=== PATIENT | female | born 1990 | race Caucasian/White ===

== ENCOUNTER 2016-11-08 16:35 | Emergency (ER) | payer MEDICAID ==
[2016-11-08] MEDS ORDERED: LIDOCAINE-MPF 1% 5 ML VIAL ONE (16:58)
[2016-11-08] MEDS ORDERED: LIDOCAINE 1% 50 ML MDV SUBQ STA (16:59)
== END 2016-11-08 17:25 | disposition home or self-care (01) ==
DX: S61.411A Laceration without foreign body of right hand, initial encounter (principal); W25.XXXA Contact with sharp glass, initial encounter; Y93.G1 Activity, food preparation and clean up; Y92.009 Unspecified place in unspecified non-institutional (private) residence as the place of occurrence of the external cause; Y99.8 Other external cause status; M06.9 Rheumatoid arthritis, unspecified

== ENCOUNTER 2017-01-14 19:47 | Inpatient (IN) | payer MEDICAID ==
[2017-01-14] MEDS ORDERED: SODIUM CHLORIDE 0.9% 1,000 ML IV ONE ×2 (20:00→20:34)
[2017-01-14] MEDS ORDERED: HYDROmorphone 1 MG/ML SYRINGE IVP STA (20:34)
[2017-01-14] MEDS ORDERED: ONDANSETRON 4 MG/2 ML VIAL IVP STA ×2 (20:34→21:50)
[2017-01-14] MEDS ORDERED: ONDANSETRON 4 MG/2 ML VIAL ONE ×2 (20:35→21:52)
[2017-01-14] MEDS ORDERED: HYDROmorphone 1 MG/ML SYRINGE ONE (20:35)
[2017-01-14] MEDS ORDERED: IOPAMIDOL-300 100 ML VIAL IVP ONE (21:35)
[2017-01-14] MEDS ORDERED: KETOROLAC 60 MG/2 ML VIAL IVP STA (21:50)
[2017-01-14] MEDS ORDERED: KETOROLAC 30 MG/ML VIAL ONE (21:52)
[2017-01-14] MEDS ORDERED: cefTRIAXone 1 GM in SODIUM CHLORIDE 0.9% MINIBAG 100 ML IV STA (22:43)
[2017-01-14] MEDS ORDERED: FLUCONAZOLE 100 MG TABLET PO STA (22:43)
[2017-01-14] MEDS ORDERED: FLUCONAZOLE 100 MG TABLET ONE (22:49)
[2017-01-14] MEDS ORDERED: cefTRIAXone 1 GM VIAL ONE (22:49)
[2017-01-15] MEDS ORDERED: ONDANSETRON 4 MG/2 ML VIAL IVP STA (00:04)
[2017-01-15] MEDS ORDERED: SODIUM CHLORIDE 0.9% 1,000 ML IV ONE (00:04)
[2017-01-15] MEDS ORDERED: ONDANSETRON 4 MG/2 ML VIAL ONE (00:07)
[2017-01-15] MEDS ORDERED: IBUPROFEN 600 MG TABLET PO PRN (00:21)
[2017-01-15] MEDS ORDERED: MORPHINE 2 MG/ML SYRINGE IVP PRN (00:21)
[2017-01-15] MEDS ORDERED: PROMETHAZINE 25 MG/1 ML VIAL IM PRN (00:21)
[2017-01-15] MEDS ORDERED: PROCHLORPERAZINE 10 MG/2 ML VIAL IVP PRN (00:21)
[2017-01-15] MEDS ORDERED: SODIUM CHLORIDE FLUSH 0.9% 10 ML SYRINGE IVP PRN (00:21)
[2017-01-15] MEDS ORDERED: ONDANSETRON 4 MG/2 ML VIAL IVP PRN (00:21)
[2017-01-15] MEDS ORDERED: KETOROLAC 30 MG/ML VIAL IM PRN (00:27)
[2017-01-15] MEDS ORDERED: ALBUTEROL NEB 2.5 MG/3 ML INH PRN (00:28)
[2017-01-15] MEDS: ACETAMINOPHEN 325 MG TABLET PO PRN ×2 (02:16→07:55)
[2017-01-15] MEDS: SODIUM CHLORIDE 0.9% 1,000 ML IV SCH ×2 (02:30→05:06)
[2017-01-15] MEDS ORDERED: SODIUM CHLORIDE FLUSH 0.9% 10 ML SYRINGE IVP SCH (06:00)
[2017-01-15] MEDS: POTASSIUM CHLOR 10 MEQ/100 ML 100 ML IV SCH ×4 (07:25→09:28)
[2017-01-15] MEDS ORDERED: SACCHAROMYCES BOULARDII 250 MG CAPSULE PO SCH (08:00)
[2017-01-15] MEDS ORDERED: ENOXAPARIN 40 MG/0.4 ML SYRINGE SUBQ SCH (09:00)
[2017-01-15] MEDS ORDERED: POLYETHYLENE GLYCOL 3350 17 GM PACKET PO SCH (09:00)
[2017-01-15] MEDS ORDERED: CALCIUM CITRATE 250 MG TABLET PO SCH (09:00)
[2017-01-15] MEDS ORDERED: POTASSIUM CHLORIDE 20 MEQ TABLET PO ONE (10:00)
[2017-01-15] MEDS ORDERED: cefTRIAXone 2 GM in SODIUM CHLORIDE 0.9% MINIBAG 100 ML IV SCH (22:00)
== END 2017-01-15 09:40 | disposition home or self-care (01) | DRG 872 ==
DX: A41.9 Sepsis, unspecified organism (principal); N12 Tubulo-interstitial nephritis, not specified as acute or chronic; B37.3 Candidiasis of vulva and vagina; R31.9 Hematuria, unspecified; N83.292 Other ovarian cyst, left side; J45.909 Unspecified asthma, uncomplicated; E87.6 Hypokalemia; E83.51 Hypocalcemia; Z79.51 Long term (current) use of inhaled steroids

== ENCOUNTER 2017-03-07 09:47 | Outpatient (CLI) | payer MEDICAID | END 2017-03-07 09:48 | DX: R10.84 Generalized abdominal pain (principal) ==

== ENCOUNTER 2017-05-03 19:33 | Emergency (ER) | payer MEDICAID ==
--- NOTE | 2017-05-03 20:09 | ED Physician Documentation ---
PD HPI LOWER EXT INJURY - Stated complaint Stated Complaint: RT TOE PX - Chief complaint Chief Complaint: Ext Problem - History obtained from History obtained from: Patient - History of Present Illness PD HPI LOW EXT INJURY LOCATION: Right, Toe (great) Type of injury: Blunt / blow Where injury occurred: A house / apartment Timing - onset: Enter time (1899), Today Timing - duration: Minutes Timing - details: Abrupt onset, Still present Improved by: Rest, Immobilization Worsened by: Moving, Palpating Associated symptoms: Swelling. No: Weakness, Numbness, Tingling Contributing factors: No: Anticoagulated Similar symptoms before: Has not had sx before Recently seen: Not recently seen - Additional information Additional information: 26-year-old female with a history of asthma and juvenile onset rheumatoid arthritis was in her kitchen this evening when she dropped a can appease directly on her great toe she has a significant amount of pain and a subungual hematoma. She has come directly to the emergency department. Review of Systems Constitutional: denies: Fever Nose: denies: Congestion Throat: denies: Sore throat Respiratory: denies: Dyspnea, Cough GI: denies: Vomiting Musculoskeletal: reports: Extremity pain, Joint pain, Joint swelling, Pain with weight bearing Neurologic: denies: Generalized weakness, Focal weakness, Numbness PD PAST MEDICAL HISTORY - Past Medical History Past Medical History: Yes Cardiovascular: None Respiratory: Asthma Neuro: None Endocrine/Autoimmune: None GI: None HEENT: None Psych: None Musculoskeletal: None Derm: None Other Past Medical History: juvenile rheumatoid arthritis - Past Surgical History 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 HEENT: Tonsil/Adenoidectomy - Present Medications Home Medications: Ambulatory Orders Medication Instructions Recorded Confirmed No Known Home Medications [No 05/03/17 05/03/17 Known Home Medications] - Allergies Allergies/Adverse Reactions: Allergies Allergy/AdvReac Type Severity Reaction Status Date / Time amoxicillin [Amoxicillin] Allergy Mild Rash Verified 05/03/17 19:46 - Social History Does the pt smoke?: No Smoking Status: Never smoker Does the pt drink ETOH?: No Does the pt have substance abuse?: Yes - Immunizations Immunizations are current?: Yes Immunizations: TDAP current <10years - POLST Patient has POLST: No PD ED PE NORMAL - Vitals Vital signs reviewed: Yes (Normal) - General General: Alert and 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, No acute distress, Well developed/nourished - HEENT HEENT: Atraumatic, PERRL - Respiratory Respiratory: No respiratory distress - Derm Derm: Normal color, Warm and dry, No rash - Extremities Extremities: Other (The right great toe has a central subungual hematoma and abrasion to the medial aspect and is quite tender mildly swollen.) - Neuro Neuro: Alert and 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, No motor deficit, No sensory deficit, Normal speech - Psych Psych: Normal mood, Normal affect Results - Vitals Vitals: Vital Signs - 24 hr 05/03/17 19:35 Temperature 36.3 C L Heart Rate 91 Respiratory 16 Rate Blood Pressure 123/79 O2 Saturation 100 Oxygen O2 Source Room air PD MEDICAL DECISION MAKING - ED course Complexity details: reviewed old records, reviewed results, re-evaluated patient , considered differential, d/w patient ED course: 26-year-old female with a subungual hematoma of the right great toe does not have evidence of fracture on x-ray examination she is counseled on the likelihood of complete avulsion of the toenail. Departure - Departure Disposition: 01 Home, Self Care Clinical Impression: Contusion of great toe with damage to nail Qualifiers: Encounter type: initial encounter Laterality: right Qualified Code(s): S90.211A - Contusion of right great toe with damage to nail, initial encounter Subungual hematoma of great toe of right foot Qualifiers: Encounter type: initial encounter Qualified Code(s): S90.211A - Contusion of right great toe with damage to nail, initial encounter Condition: Stable Instructions: ED Hematoma Subungual, ED Contusion Lower Ext Follow-Up: Barrie Salinas MD [Primary Care Provider] -
[2017-05-03] MEDS ORDERED: HYDROcod/ACET 5/325 Prepack 6 PO ONE ×2 (20:46→20:47)
--- NOTE | 2017-05-03 20:55 | XRAY Preliminary Report ---
Exam: XR Foot 3 View RT IMPRESSION: No bony abnormality. [facility] SITE ID: [id number]
[2017-05-03 21:00] VITALS: BP 131/95
--- NOTE | 2017-05-03 21:04 | XRAY Report ---
EXAM: RIGHT FOOT RADIOGRAPHY EXAM DATE: 05/03/2017 08:21 PM. CLINICAL HISTORY: Great toe contusion . COMPARISON: None. TECHNIQUE: 3 views. FINDINGS: Bones: Normal. No fractures or bone lesions. Joints: Normal. No subluxations. Soft Tissues: Moderate edema right great toe. No radiopaque foreign bodies. IMPRESSION: No bony abnormality. [facility] Referring Provider Line: [phone] SITE ID: [id number]
== END 2017-05-03 20:59 | disposition home or self-care (01) ==
LOC: ED 19:33
DX: S90.211A Contusion of right great toe with damage to nail, initial encounter (principal); W20.8XXA Other cause of strike by thrown, projected or falling object, initial encounter; Y92.030 Kitchen in apartment as the place of occurrence of the external cause; J45.909 Unspecified asthma, uncomplicated; M08.00 Unspecified juvenile rheumatoid arthritis of unspecified site
CPT/HCPCS: 99283

== ENCOUNTER 2017-06-21 18:00 | Emergency (ER) | payer MEDICAID ==
--- NOTE | 2017-06-21 19:14 | XRAY Preliminary Report ---
Exam: XR Finger(s) LT IMPRESSION: Normal second digit radiography. [facility] SITE ID: [id number]
--- NOTE | 2017-06-21 19:17 | XRAY Report ---
EXAM: LEFT SECOND DIGIT RADIOGRAPHY EXAM DATE: 06/21/2017 06:34 PM. CLINICAL HISTORY: Gross injury. Pain. COMPARISON: None. TECHNIQUE: 3 views. FINDINGS: Bones: Normal. No fracture or bone lesion. Joints: Normal. No subluxations. Soft Tissues: Normal. No soft tissue swelling. IMPRESSION: Normal second digit radiography. [facility] Referring Provider Line: [phone] SITE ID: [id number]
--- NOTE | 2017-06-21 19:21 | ED Physician Documentation ---
PD HPI UPPER EXT INJURY - Stated complaint Stated Complaint: LT FINGER LAC - Chief complaint Chief Complaint: Ext Problem - History obtained from History obtained from: Patient - History of Present Illness Location: Left, Finger (2) Type of injury: Blunt / blow Improved by: Rest Worsened by: Moving, Palpating Associated symptoms: No: Weakness, Numbness, Tingling Contributing factors: No: Anticoagulated, Prior ortho surgery Similar symptoms before: Has not had sx before Recently seen: Not recently seen - Additonal information Additional information: Patient is a 26-year-old female who states that she struck the dorsum of the left index finger with a mallet accidentally, this is over the PIP joint. States the initial pain was 8 out of 10, now 4 out of 10. Limited range of motion secondary to pain. Has an abrasion over the dorsum of the fingers well. Denies any numbness, tingling. 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 HEENT: Tonsil/Adenoidectomy - Present Medications Home Medications: Ambulatory Orders Medication Instructions Recorded Confirmed No Known Home Medications [No 05/03/17 05/03/17 Known Home Medications] - Allergies Allergies/Adverse Reactions: Allergies Allergy/AdvReac Type Severity Reaction Status Date / Time amoxicillin [Amoxicillin] Allergy Mild Rash Verified 06/21/17 18:19 - Social History Does the pt smoke?: No Smoking Status: Never smoker Does the pt drink ETOH?: No Does the pt have substance abuse?: No - Immunizations Immunizations are current?: Yes Immunizations: TDAP current <10years - POLST Patient has POLST: No PD ED PE NORMAL - Vitals Vital signs reviewed: Yes - General General: Alert and 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, No acute distress - Derm Derm: Warm and dry - Extremities Extremities: Other (Tender to palpation over the PIP joint of the left index finger. Limited range of motion secondary to pain. Tendons intact. Small abrasion over the joint. There is no violation of the joint capsule itself. Neurovascularly intact) Results - Vitals Vitals: Vital Signs - 24 hr 06/21/17 06/21/17 18:15 19:49 Temperature 36.9 C 36.7 C Heart Rate 84 75 Respiratory 18 18 Rate Blood Pressure 137/89 H 114/83 H O2 Saturation 96 100 Oxygen O2 Source Room air - Rads (name of study) Left index finger x-ray Radiology: Prelim report reviewed, EMP read contemporaneously, See rad report ( No acute bony abnormality) PD MEDICAL DECISION MAKING - ED course Complexity details: reviewed results, re-evaluated patient, considered differential, d/w patient ED course: Patient is a 26-year-old female who presents to the emergency department after sustaining a contusion to the left index finger from a mallet. No acute fractures on x-ray. Wound was cleansed and bandaged. Placed in a splint for comfort. Will utilize Tylenol and Motrin as needed for pain at home. Tetanus is up-to-date. Patient is right-handed. Counseled regarding missed fractures secondary to acute swelling and may need repeat xrays if not improving. Patient counseled regarding signs and symptoms for which I believe and urgent re -evaluation would be necessary. Patient with good understanding of and agreement to plan and is comfortable going home at this time This document was made in part using voice recognition software. While efforts are made to proofread this document, sound alike and grammatical errors may occur. Departure - Departure Disposition: 01 Home, Self Care Clinical Impression: Abrasion Finger contusion Qualifiers: Encounter type: initial encounter Finger: index finger Damage to nail status: without damage Laterality: left Qualified Code(s): S60.022A - Contusion of left index finger without damage to nail, initial encounter Condition: Good Instructions: ED Contusion Finger Follow-Up: Barrie Salinas MD [Primary Care Provider] - As Needed Comments: wear the finger splint for the next 4-5 days. Return if you worsen. Your xrays are normal today. Discharge Date/Time: 06/21/17 19:50
[2017-06-21] MEDS: IBUPROFEN 800 MG TABLET PO STA (19:39)
[2017-06-21] MEDS ORDERED: IBUPROFEN 800 MG TABLET PO ONE (19:41)
[2017-06-21 19:50] VITALS: BP 114/83
== END 2017-06-21 19:50 | disposition home or self-care (01) ==
LOC: ED 18:00
DX: S60.411A Abrasion of left index finger, initial encounter (principal); S61.211A Laceration without foreign body of left index finger without damage to nail, initial encounter; W22.8XXA Striking against or struck by other objects, initial encounter; Y93.89 Activity, other specified
CPT/HCPCS: 73140; 99282; 99283

== ENCOUNTER 2017-07-10 15:39 | Emergency (ER) | payer MEDICAID ==
[2017-07-10 15:50] VITALS: BP 136/89
[2017-07-10] MEDS ORDERED: DEXAMETHASONE 10 MG/ML VIAL PO STA (16:12)
--- NOTE | 2017-07-10 16:14 | ED Physician Documentation ---
PD HPI UPPER EXT INJURY - Stated complaint Stated Complaint: L INDEX FINGER INJURY - Chief complaint Chief Complaint: Ext Problem - History obtained from History obtained from: Patient - History of Present Illness Location: Left, Finger (index) Type of injury: Blunt / blow Where injury occurred: Home Timing - onset: How many days ago (19) Timing - duration: Days (19) Improved by: Rest, Immobilization Worsened by: Moving, Palpating Associated symptoms: Swelling. No: Weakness, Numbness Contributing factors: No: Anticoagulated Similar symptoms before: Has not had sx before Recently seen: Emergency Dept (Seen in the ED 19 days ago with laceration) - Additonal information Additional information: 26-year-old female struck her left index finger with a mallet 19 days ago. She had a laceration over the PIP joint and x-ray was obtained and the patient was patient's finger was sutured. She has since complained of persistent pain and difficulty moving the finger through a full range of motion. She has an autistic son who has struck her finger several times and this hurts all the way up into her neck. She has been into see her primary for this and they have given her injections trigger point into the neck for the pain associated with the finger contusion and laceration. The patient has restricted range of motion of the index finger is not able to fully bend it she is able to fully extend it. Review of Systems Constitutional: denies: Fever Ears: denies: Ear pain Nose: denies: Congestion Respiratory: denies: Cough GI: denies: Vomiting Skin: reports: Laceration (s). denies: Rash Musculoskeletal: reports: Extremity pain, Joint pain. 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 HEENT: Tonsil/Adenoidectomy - Present Medications Home Medications: Ambulatory Orders Medication Instructions Recorded Confirmed No Known Home Medications [No 05/03/17 05/03/17 Known Home Medications] - Allergies Allergies/Adverse Reactions: Allergies Allergy/AdvReac Type Severity Reaction Status Date / Time amoxicillin [Amoxicillin] Allergy Mild Rash Verified 06/21/17 18:19 - Social History Does the pt smoke?: No Smoking Status: Never smoker Does the pt drink ETOH?: No Does the pt have substance abuse?: No - Immunizations Immunizations are current?: Yes Immunizations: TDAP current <10years - POLST Patient has POLST: No PD ED PE NORMAL - Vitals Vital signs reviewed: Yes (Hypertensive) - General General: No acute distress, Well developed/nourished - HEENT HEENT: Atraumatic, PERRL - Neck Neck: Supple, no meningeal sign - Respiratory Respiratory: No respiratory distress - Derm Derm: Normal color, Warm and dry, No rash - Extremities Extremities: No deformity, No edema, Other (There is some mild tenderness over the left index finger PIP joint all over the ulnar surface. The eschar is now resolved and there is scar tissue that appears appropriate for the age of the injury. She is able to flex and extend the digit at the PIP and DIP but she is not able to get full range of motion. Distal neurovascular components are intact.) Results - Vitals Vitals: Vital Signs - 24 hr 07/10/17 15:46 Temperature 36.9 C Heart Rate 93 Respiratory 17 Rate Blood Pressure 136/89 H O2 Saturation 99 Oxygen O2 Source Room air PD MEDICAL DECISION MAKING - ED course Complexity details: reviewed results, re-evaluated patient, considered differential, d/w patient, d/w family ED course: 26-year-old female with a recent contusion laceration injury to the left index finger over the extensor tendon. She has some mild restriction of movement but is able to move the finger through the range of motion she is concerned because her physician told her she might have to see a hand surgeon.Here in the emergency department her fingers placed into a splint and she is given a dose of dexamethasone. I have encouraged her to follow-up with orthopedics next week to begin physical therapy for rehabilitation of the tendon and tendon sheath. Departure - Departure Disposition: 01 Home, Self Care Clinical Impression: Finger contusion Qualifiers: Encounter type: initial encounter Finger: index finger Damage to nail status: without damage Laterality: left Qualified Code(s): S60.022A - Contusion of left index finger without damage to nail, initial encounter Condition: Stable Instructions: ED Sprain Finger Follow-Up: [facility] [Provider Group] Comments: Today in the Emergency Department your blood pressure was elevated. This can happen from the stress of the visit itself, from a current illness or circumstance or from uncontrolled hypertension. If you take blood pressure medications take your usual mediations, have your blood pressure re-checked in an appropriate setting and follow up any elevation with your primary care doctor.
[2017-07-10] MEDS ORDERED: DEXAMETHASONE 10 MG/ML VIAL ONE (16:18)
== END 2017-07-10 16:25 | disposition home or self-care (01) ==
LOC: ED 15:39
DX: S60.022A Contusion of left index finger without damage to nail, initial encounter (principal); W50.0XXA Accidental hit or strike by another person, initial encounter; J45.909 Unspecified asthma, uncomplicated; R03.0 Elevated blood-pressure reading, without diagnosis of hypertension
CPT/HCPCS: 99283

== ENCOUNTER 2017-07-13 12:19 | Outpatient (CLI) | payer MEDICAID ==
--- NOTE | 2017-07-13 13:50 | XRAY Report ---
THREE VIEW LEFT INDEX FINGER: 07/13/2017 CLINICAL INDICATION: Continued pain and swelling. COMPARISON: 06/21/2017. FINDINGS: AP, lateral, and oblique views of the left index finger demonstrate no evidence of fractur e or dislocation. The joint spaces are preserved. Soft tissue swelling is noted dorsally at the proxi mal interphalangeal joint. No radiopaque foreign body is seen in the soft tissues. IMPRESSION: SOFT TISSUE SWELLING, BUT NO EVIDENCE OF FRACTURE OR FOREIGN BODY. JOB #: [id number] EXT JOB #:[id number]
== END 2017-07-13 12:20 | disposition home or self-care (01) ==
LOC: DI 12:19
PROVIDERS: ATTEND Family Medicine
DX: M79.89 Other specified soft tissue disorders (principal)
CPT/HCPCS: 73140

== ENCOUNTER 2017-10-02 10:12 | Emergency (ER) | payer MEDICAID ==
[2017-10-02] MEDS ORDERED: SODIUM CHLORIDE 0.9% 1,000 ML IV ONE (11:02)
[2017-10-02 11:11] LABS: BASOPHILS % (AUTO) 0.1 %; EOSINOPHILS % (AUTO) 0.1 %; HGB - HEMOGLOBIN 14.8 g/dL (12.0-16.0); LYMPHOCYTES # (AUTO) 0.3 10^3/uL (1.5-3.5); LYMPHOCYTES % (AUTO) 4.1 %; MEAN CORPUSCULAR HEMOGLOBIN 31.4 pg (27.0-31.0); MEAN CORPUSCULAR HGB CONC 34.5 g/dL (32.0-36.0); MEAN CORPUSCULAR VOLUME 90.9 fL (81.0-99.0); MEAN PLATELET VOLUME 8.9 fL (7.9-10.8); MONOCYTES # (AUTO) 0.2 10^3/uL (0.0-1.0); NEUTROPHILS # (AUTO) 6.9 10^3/uL (1.5-6.6); NEUTROPHILS % (AUTO) 92.7 %; RED BLOOD COUNT 4.73 10^6/uL (4.20-5.40); RED CELL DISTRIBUTION WIDTH 12.6 % (12.0-15.0); UNCORRECTED WHITE BLOOD COUNT 7.4 x10^3/uL; WHITE BLOOD COUNT 7.4 x10^3/uL (4.8-10.8)
[2017-10-02 11:18] LABS: ALBUMIN/GLOBULIN RATIO 1.4 (1.0-2.2); BILIRUBIN,TOTAL 1.5 mg/dL (0.2-1.0); CALCIUM 8.9 mg/dL (8.5-10.3); CREATININE 0.7 mg/dL (0.4-1.0); POTASSIUM 3.4 mmol/L (3.5-5.0); TOTAL PROTEIN 7.2 g/dL (6.7-8.2)
[2017-10-02] MEDS ORDERED: KETOROLAC 30 MG/ML VIAL IVP STA (12:33)
[2017-10-02 12:49] LABS: BILIRUBIN,URINE NEGATIVE (NEGATIVE); PH,URINE 6.5 PH (5.0-7.5)
[2017-10-02 12:53] LABS: HCG UR QUAL NEGATIVE
--- NOTE | 2017-10-02 13:00 | ED Physician Documentation ---
History of Present Illness - Stated complaint Stated Complaint: FLU LIKE SYMPTOM - Chief complaint Chief Complaint: General - Additonal information Additional information: 26-year-old female presents to the emergency department with body aches and malaise and fever witih vomiting and diffuse abdominal pain. 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 HEENT: Tonsil/Adenoidectomy - Present Medications Home Medications: Ambulatory Orders Medication Instructions Recorded Confirmed Metronidazole [Flagyl] 500 mg PO BID #14 tablet 10/02/17 Ondansetron Odt [Zofran] 4 mg TL Q6H PRN #10 tablet 10/02/17 - Allergies Allergies/Adverse Reactions: Allergies Allergy/AdvReac Type Severity Reaction Status Date / Time amoxicillin [Amoxicillin] Allergy Mild Rash Verified 06/21/17 18:19 - Social History Does the pt smoke?: No Smoking Status: Never smoker Does the pt drink ETOH?: No Does the pt have substance abuse?: No - Immunizations Immunizations are current?: Yes Immunizations: TDAP current <10years - POLST Patient has POLST: No PD ED PE NORMAL - Vitals Vital signs reviewed: Yes - General General: Alert and 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, No acute distress - HEENT HEENT: PERRL - Neck Neck: Supple, no meningeal sign - Cardiac Cardiac: RRR, No murmur - Respiratory Respiratory: Clear bilaterally - Abdomen Abdomen: Normal bowel sounds, Soft, Non distended, Other (ttp RUQ, no rebound or guarding) - Derm Derm: Warm and dry - Extremities Extremities: No deformity - Neuro Neuro: Alert and 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 - Psych Psych: Normal mood, Normal affect Results - Vitals Vitals: Oxygen O2 Source Room air - Labs Labs: Laboratory Tests 10/02/17 10/02/17 10/02/17 10:30 10:30 10:30 WBC 7.4 RBC 4.73 Hgb 14.8 Hct 43.0 MCV 90.9 MCH 31.4 H MCHC 34.5 RDW 12.6 Plt Count 192 MPV 8.9 Neut # 6.9 H Lymph # 0.3 L Barber # 0.2 Eos # 0.0 Baso # 0.0 Absolute Nucleated RBC 0.00 Nucleated RBC % 0.0 Sodium 137 Potassium 3.4 L Chloride 107 Carbon Dioxide 20 L Anion Gap 10.0 BUN 14 Creatinine 0.7 Estimated GFR (MDRD) 101 Glucose 121 H Calcium 8.9 Total Bilirubin 1.5 H AST 21 ALT 22 Alkaline Phosphatase 63 Total Protein 7.2 Albumin 4.2 Globulin 3.0 Albumin/Globulin Ratio 1.4 Lipase 18 L Urine Color Urine Clarity Urine pH Ur Specific [place] Urine Protein Urine Glucose (UA) Urine Ketones Urine Occult Blood Urine Nitrite Urine Bilirubin Urine Urobilinogen Ur Leukocyte Esterase Urine RBC Urine WBC Ur Squamous Epith Cells Urine Bacteria Urine Culture Comments Urine HCG, Qual 10/02/17 11:52 WBC RBC Hgb Hct MCV MCH MCHC RDW Plt Count MPV Neut # Lymph # Barber # Eos # Baso # Absolute Nucleated RBC Nucleated RBC % Sodium Potassium Chloride Carbon Dioxide Anion Gap BUN Creatinine Estimated GFR (MDRD) Glucose Calcium Total Bilirubin AST ALT Alkaline Phosphatase Total Protein Albumin Globulin Albumin/Globulin Ratio Lipase Urine Color YELLOW Urine Clarity CLEAR Urine pH 6.5 Ur Specific [place] 1.020 Urine Protein NEGATIVE Urine Glucose (UA) NEGATIVE Urine Ketones 15 H Urine Occult Blood NEGATIVE Urine Nitrite NEGATIVE Urine Bilirubin NEGATIVE Urine Urobilinogen 0.2 (NORMAL) Ur Leukocyte Esterase NEGATIVE Urine RBC 0-5 Urine WBC 0-3 Ur Squamous Epith Cells MOD Squamous H Urine Bacteria None Seen Urine Culture Comments NOT INDICATED Urine HCG, Qual NEGATIVE PD MEDICAL DECISION MAKING - ED course ED course: Obtain results of recent pelvic exam from patient's clinic. She had negative testing for chlamydia gonorrhea and trichomonas and jr. She was positive for Gardnerella. Clinic requested that she be treated for BV. Flagyl prescribed , 1502 patient feels improved is tolerating p.o. and eating crackers. She does not have any pain at this time. Her ultrasound images were reviewed by me and I did not see any gallstones or gallbladder wall edema. lead nuclear medicine technologist reports that there were no findings on the ultrasound. I discussed with patient discharge prior to radiology final read. She understands that she has not had the final interpretation but needs to leave to miner pick her children. final US read with no acute disease. Departure - Departure Disposition: 01 Home, Self Care Clinical Impression: Vomiting, Generalized muscle ache, Fever Condition: Good Instructions: ED Abdominal Pain Unkn Cause, ED Vaginosis Bacterial Follow-Up: Barrie Salinas MD [Primary Care Provider] - Prescriptions: Metronidazole [Flagyl] 500 mg PO BID #14 tablet Ondansetron Odt [Zofran] 4 mg TL Q6H PRN #10 tablet PRN Reason: Nausea / Vomiting Comments: We did not find an exact cause for your symptoms today. You may have a viral illness. An ultrasound of the gallbladder was performed and did not find any preliminary abnormalities. You will receive a phone call if any findings that were unexpected are found. Your primary care office requested that he be treated for bacterial vaginosis based on your samples obtained there. Your prescribed Flagyl for this. Do not drink any alcohol while you are taking this medication or it will make you feel very sick. Return to the emergency department if you have worsening abdominal pain or if symptoms are not improving, you have inability to keep any fluids down. Discharge Date/Time: 10/02/17 15:10
[2017-10-02 13:07] LABS: UR CULTURE IF IND NOT INDICATED; WBC,URINE 0-3 /HPF (0-5)
[2017-10-02] MEDS ORDERED: KETOROLAC 15 MG/ML VIAL ONE (13:16)
[2017-10-02 15:00] VITALS: BP 136/80
--- NOTE | 2017-10-02 16:07 | Ultrasound Report ---
LIMITED ABDOMEN ULTRASOUND: 10/02/2017 HISTORY: Right upper quadrant pain and vomiting. TECHNIQUE: Real-time scanning by the inventory specialist with saved static images reviewed. FINDINGS: Liver 15 cm in length, normal in echotexture. No focal pathology. Normal directional blo od flow. Gallbladder: Negative. No stones. Wall thickness 2.6 mm. Common bile duct 3.5 mm. Right kidney: 11.5 cm in length. Unremarkable. Free fluid: None. IMPRESSION: NEGATIVE RIGHT UPPER QUADRANT ULTRASOUND. NO EVIDENCE OF CHOLELITHIASIS OR CHOLECYSTITI S. JOB #: [id number] EXT JOB #:[id number]
== END 2017-10-02 15:10 | disposition home or self-care (01) ==
LOC: ED 10:12
DX: R11.10 Vomiting, unspecified (principal); M79.1 Myalgia; R50.9 Fever, unspecified
CPT/HCPCS: 36415; 76705; 80053; 81001; 81025; 83690; 85025; 87086; 96361; 96374; 99283

== ENCOUNTER 2018-06-24 02:40 | Emergency (ER) | payer MEDICAID ==
[2018-06-24 03:20] LABS: BILIRUBIN,URINE NEGATIVE (NEGATIVE); GLUCOSE, URINE (UA) NEGATIVE (NEGATIVE); KETONES,URINE (UA) NEGATIVE (NEGATIVE); LEUKOCYTE ESTERASE, URINE NEGATIVE (NEGATIVE); NITRITE,URINE NEGATIVE (NEGATIVE); OCCULT BLOOD,URINE NEGATIVE (NEGATIVE); PH,URINE 6.5 PH (5.0-7.5); PROTEIN,URINE NEGATIVE (NEGATIVE); UROBILINOGEN,URINE 0.2 (NORMAL) E.U./dL (NORMAL)
[2018-06-24 03:25] LABS: CLARITY,URINE CLEAR (CLEAR); HCG UR QUAL NEGATIVE
[2018-06-24] MEDS ORDERED: ONDANSETRON 4 MG/2 ML VIAL IVP STA (03:38)
[2018-06-24] MEDS ORDERED: SODIUM CHLORIDE 0.9% 1,000 ML IV ONE (03:38)
[2018-06-24] MEDS ORDERED: KETOROLAC 60 MG/2 ML VIAL IVP STA (03:38)
[2018-06-24] MEDS ORDERED: IOPAMIDOL-300 100 ML VIAL ONE (03:43)
[2018-06-24 03:44] LABS: ALBUMIN 3.9 g/dL (3.2-5.5); ALBUMIN/GLOBULIN RATIO 1.3 (1.0-2.2); BILIRUBIN,TOTAL 0.3 mg/dL (0.2-1.0); CALCIUM 8.8 mg/dL (8.5-10.3); CREATININE 0.9 mg/dL (0.4-1.0); TOTAL PROTEIN 6.8 g/dL (6.7-8.2)
[2018-06-24 03:46] LABS: BASOPHILS % (AUTO) 0.6 %; EOSINOPHILS # (AUTO) 0.1 10^3/uL (0.0-0.7); EOSINOPHILS % (AUTO) 1.4 %; HGB - HEMOGLOBIN 13.1 g/dL (12.0-16.0); LYMPHOCYTES # (AUTO) 1.9 10^3/uL (1.5-3.5); LYMPHOCYTES % (AUTO) 32.6 %; MEAN CORPUSCULAR HEMOGLOBIN 31.6 pg (27.0-31.0); MEAN CORPUSCULAR HGB CONC 34.3 g/dL (32.0-36.0); MEAN CORPUSCULAR VOLUME 92.1 fL (81.0-99.0); MEAN PLATELET VOLUME 8.5 fL (7.9-10.8); MONOCYTES # (AUTO) 0.5 10^3/uL (0.0-1.0); MONOCYTES % (AUTO) 8.7 %; NEUTROPHILS # (AUTO) 3.3 10^3/uL (1.5-6.6); NEUTROPHILS % (AUTO) 56.7 %; PLT - PLATELET COUNT 204 10^3/uL (130-450); RED BLOOD COUNT 4.14 10^6/uL (4.20-5.40); RED CELL DISTRIBUTION WIDTH 12.7 % (12.0-15.0); WHITE BLOOD COUNT 5.8 x10^3/uL (4.8-10.8)
[2018-06-24] MEDS ORDERED: IOPAMIDOL-300 100 ML VIAL IVP ONE (04:01)
--- NOTE | 2018-06-24 04:24 | CT Report ---
Reason: Flank and LLQ pain Procedure Date: 06/24/2018 Accession Number: [id number] / [id number] Procedure: CT - Abdomen/Pelvis W/ CPT Code: FULL RESULT: EXAM: CT ABDOMEN AND PELVIS EXAM DATE: 06/24/2018 04:12 AM. CLINICAL HISTORY: Flank and left lower quadrant pain COMPARISONS: ABDOMEN/PELVIS W/ 01/14/2017. TECHNIQUE: Routine helical CT imaging was performed through the abdomen and pelvis. IV contrast: ISOVUE 300 100mL. Enteric contrast: No. Reconstructions: Coronal and sagittal. In accordance with CT protocol optimization, one or more of the following dose reduction techniques were utilized for this exam: automated exposure control, adjustment of mA and/or KV based on patient size, or use of iterative reconstructive technique. FINDINGS: Lung Bases: Unremarkable. Liver: Normal. No masses. Gallbladder/Bile Ducts: Unremarkable. Spleen: Normal. Pancreas: Normal. Adrenal Glands: Normal. Kidneys: Normal. No masses or hydronephrosis. Peritoneal Cavity/Bowel: Normal. No free fluid, free air or adenopathy. No masses or acute inflammatory process. The appendix is well visualized and normal. Pelvic Organs: Left adnexal cyst, similar to previous. No pelvic adenopathy or free fluid. Vasculature: No aneurysms or other significant abnormality. Bones: No significant abnormality. Other: None. IMPRESSION: Left adnexal cyst, similar to previous. No evidence of hydronephrosis or nephrolithiasis. No diverticulosis or diverticulitis. [facility]
--- NOTE | 2018-06-24 05:01 | ED Physician Documentation ---
History of Present Illness - Stated complaint Stated Complaint: L SIDE/ BACK/GROIN PX - Chief complaint Chief Complaint: Abd Pain - History obtained from History obtained from: Patient - Additonal information Additional information: 27-year-old female presents the emergency department with left-sided flank pain which started 2 days ago. The patient also reports pain in her left lower abdomen. The patient has had dysuria. The patient denies hematuria. The patient was seen initially by primary care started on a course of an antibiotic. The patient denies fevers, chills, cough, congestion. No relieving factors. No other associated symptoms Review of Systems Constitutional: denies: Fever, Chills Eyes: denies: Discharge Ears: denies: Ear pain Nose: denies: Congestion Throat: denies: Sore throat Cardiac: denies: Chest pain / pressure Respiratory: denies: Dyspnea GI: reports: Abdominal Pain : denies: Dysuria Skin: denies: Rash Musculoskeletal: denies: Neck pain Neurologic: denies: Generalized weakness Immunocompromised: denies: Chemotherapy PD PAST MEDICAL HISTORY - Past Medical History Past Medical History: Yes Cardiovascular: None Respiratory: Asthma Endocrine/Autoimmune: None GI: None DIRECTOR OF CLAIMS: Other HEENT: None Psych: None Musculoskeletal: None Derm: None Other Past Medical History: HPV - Past Surgical History Past Surgical History: Yes /DIRECTOR OF CLAIMS: Tubal ligation HEENT: Tonsil/Adenoidectomy - Present Medications Home Medications: Ambulatory Orders Medication Instructions Recorded Confirmed Sulfamethox/Trimeth 800/160 1 tab PO BID 06/24/18 06/24/18 [Bactrim Ds] - Allergies Allergies/Adverse Reactions: Allergies Allergy/AdvReac Type Severity Reaction Status Date / Time amoxicillin [Amoxicillin] Allergy Mild Rash Verified 06/24/18 03:04 - Social History Does the pt smoke?: No Smoking Status: Never smoker Does the pt drink ETOH?: No Does the pt have substance abuse?: No - Immunizations Immunizations are current?: Yes Immunizations: TDAP current <10years - POLST Patient has POLST: No PD ED PE NORMAL - General General: Alert and 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, No acute distress - HEENT HEENT: Atraumatic, PERRL, EOMI - Neck Neck: Supple, no meningeal sign - Cardiac Cardiac: RRR, Strong equal pulses - Respiratory Respiratory: No respiratory distress - Abdomen Abdomen: Soft, Non distended. No: Non tender (The patient has tenderness to palpation in the left lower abdomen, there is no rebound or peritoneal signs) - Back Back: No CVA TTP - Derm Derm: Normal color, No rash - Extremities Extremities: No deformity - Neuro Neuro: Alert and 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, Normal speech - Psych Psych: Normal affect Results - Vitals Vitals: Vital Signs - 24 hr 06/24/18 06/24/18 03:02 04:17 Temperature 36.8 C Heart Rate 90 98 Respiratory 20 15 Rate Blood Pressure 135/95 H 128/82 H O2 Saturation 100 98 Oxygen O2 Source Room air - Labs Labs: Laboratory Tests 06/24/18 06/24/18 06/24/18 03:11 03:25 03:25 WBC 5.8 RBC 4.14 L Hgb 13.1 Hct 38.2 MCV 92.1 MCH 31.6 H MCHC 34.3 RDW 12.7 Plt Count 204 MPV 8.5 Neut # (Auto) 3.3 Lymph # (Auto) 1.9 [place] # (Auto) 0.5 Eos # (Auto) 0.1 Baso # (Auto) 0.0 Absolute Nucleated RBC 0.00 Nucleated RBC % 0.0 Sodium 138 Potassium 3.5 Chloride 105 Carbon Dioxide 24 Anion Gap 9.0 BUN 15 Creatinine 0.9 Estimated GFR (MDRD) 75 L Glucose 97 Calcium 8.8 Total Bilirubin 0.3 AST 20 ALT 22 Alkaline Phosphatase 65 Total Protein 6.8 Albumin 3.9 Globulin 2.9 Albumin/Globulin Ratio 1.3 Lipase 35 Urine Color YELLOW Urine Clarity CLEAR Urine pH 6.5 Ur Specific [place] 1.015 Urine Protein NEGATIVE Urine Glucose (UA) NEGATIVE Urine Ketones NEGATIVE Urine Occult Blood NEGATIVE Urine Nitrite NEGATIVE Urine Bilirubin NEGATIVE Urine Urobilinogen 0.2 (NORMAL) Ur Leukocyte Esterase NEGATIVE Ur Microscopic Review NOT INDICATED Urine Culture Comments NOT INDICATED Urine HCG, Qual NEGATIVE - Rads (name of study) CT abd/pelvis Radiology: Final report received (IMPRESSION: Left adnexal cyst, similar to previous. No evidence of hydronephrosis or nephrolithiasis. No diverticulosis or diverticulitis. ) PD MEDICAL DECISION MAKING - ED course ED course: The patient's workup does not reveal any acute etiology that would necessitate admission to the hospital or acute surgical consultation. On reevaluation the patient is resting comfortably and appears appropriate for discharge home. I discussed with the patient the findings and plan for outpatient management. The patient understands and agrees. I discussed warning signs and recommended returning to the emergency department immediately for worsening or any concerns. - Sepsis Event Vital Signs: Vital Signs - 24 hr 06/24/18 06/24/18 03:02 04:17 Temperature 36.8 C Heart Rate 90 98 Respiratory 20 15 Rate Blood Pressure 135/95 H 128/82 H O2 Saturation 100 98 Oxygen O2 Source Room air Departure - Departure Disposition: 01 Home, Self Care Clinical Impression: Flank pain, acute, Ovarian cyst Abdominal pain Qualifiers: Abdominal location: unspecified location Qualified Code(s): R10.9 - Unspecified abdominal pain Condition: Good Instructions: Abdominal Pain Follow-Up: Aaliyah Rogers ARNP [Primary Care Provider] - Within 1 week Comments: Please return for worsening symptoms or any concerns
[2018-06-24 05:06] VITALS: BP 114/65
== END 2018-06-24 05:09 | disposition home or self-care (01) ==
LOC: ED 02:40
DX: N83.202 Unspecified ovarian cyst, left side (principal); R10.9 Unspecified abdominal pain
CPT/HCPCS: 36415; 74177; 80053; 81003; 81025; 83690; 85025; 96361; 96374; 96375; 99283; 99284; Q9967; 81001; 87086

== ENCOUNTER 2018-08-08 17:22 | Outpatient (CLI) | payer MEDICAID ==
--- NOTE | 2018-08-09 15:30 | Ultrasound Report ---
Reason: PELVIC AND PERINEAL PAIN Procedure Date: 08/08/2018 Accession Number: [id number] / [id number] Procedure: US - Pelvic w/Transvaginal CPT Code: FULL RESULT: EXAM: PELVIC ULTRASOUND EXAM DATE: 08/08/2018 06:06 PM. CLINICAL HISTORY: Pelvic and perineal pain. COMPARISON: None. TECHNIQUE: Realtime transabdominal pelvic scan performed to identify the uterus and adnexa and as an overview of other pelvic structures, followed by transvaginal scan to provide greater detail of the uterus and adnexa, with static image documentation. FINDINGS: Uterus: 9.3 x 5.1 x 4.3 cm, volume 106 cc. Retroverted position. Normal overall size and echotexture. Masses: None. Endometrium: 10 mm. Normal. Cervix: Unremarkable. Right Ovary: 4.4 x 3.5 x 2.9 cm, volume 23 cc. Normal echotexture and blood flow. Left Ovary: 5.9 x 4.0 x 4.0 cm, volume 49 cc. Normal echotexture and blood flow. A 4.8 x 3.2 x 3.4 cm cyst which appears simple is identified. Free Fluid: None. Other: None. IMPRESSION: Left adnexal cyst without concerning features which may account for the patient's pain. Recommendation: Adnexal cysts above 3 cm in a premenopausal patient are considered likely to be benign. Follow-up ultrasound to resolution is recommended in 3 months. RADIA
== END 2018-08-08 17:23 | disposition home or self-care (01) ==
LOC: DI 17:22
PROVIDERS: ATTEND Obstetrics & Gynecology
DX: N83.202 Unspecified ovarian cyst, left side (principal); R10.2 Pelvic and perineal pain
CPT/HCPCS: 76830; 76856

== ENCOUNTER 2018-08-14 11:34 | Outpatient (CLI) | payer MEDICAID ==
[2018-08-14 18:41] LABS: BASOPHILS % (AUTO) 0.7 %; EOSINOPHILS # (AUTO) 0.1 10^3/uL (0.0-0.7); EOSINOPHILS % (AUTO) 1.6 %; HGB - HEMOGLOBIN 13.6 g/dL (12.0-16.0); LYMPHOCYTES # (AUTO) 1.7 10^3/uL (1.5-3.5); LYMPHOCYTES % (AUTO) 35.2 %; MEAN CORPUSCULAR HEMOGLOBIN 31.5 pg (27.0-31.0); MEAN CORPUSCULAR HGB CONC 33.8 g/dL (32.0-36.0); MEAN CORPUSCULAR VOLUME 93.2 fL (81.0-99.0); MEAN PLATELET VOLUME 9.3 fL (7.9-10.8); MONOCYTES # (AUTO) 0.3 10^3/uL (0.0-1.0); MONOCYTES % (AUTO) 6.4 %; NEUTROPHILS # (AUTO) 2.7 10^3/uL (1.5-6.6); NEUTROPHILS % (AUTO) 56.1 %; PLT - PLATELET COUNT 209 10^3/uL (130-450); RED BLOOD COUNT 4.31 10^6/uL (4.20-5.40); RED CELL DISTRIBUTION WIDTH 12.7 % (12.0-15.0); WHITE BLOOD COUNT 4.7 x10^3/uL (4.8-10.8)
[2018-08-14 19:10] LABS: T4 (THYROXINE) 9.45 ug/dL (6.09-12.23)
[2018-08-14 19:12] LABS: THYROID STIMULATING HORMONE 0.61 uIU/mL (0.34-5.60)
[2018-08-14 19:19] LABS: TOTAL T3 1.01 ng/mL (0.87-1.78)
[2018-08-14 19:40] LABS: FOLLICLE STIMULATING HORMONE 4.6 mIU/mL
[2018-08-14 19:41] LABS: LUTEINIZING HORMONE 8.03 mIU/mL
== END 2018-08-14 11:35 | disposition home or self-care (01) ==
LOC: LAB.N 11:34
PROVIDERS: ATTEND Obstetrics & Gynecology
DX: Z13.29 Encounter for screening for other suspected endocrine disorder (principal); Z13.0 Encounter for screening for diseases of the blood and blood-forming organs and certain disorders involving the immune mechanism
CPT/HCPCS: 36415; 83001; 83002; 84436; 84443; 84480; 85025

== ENCOUNTER 2018-09-11 12:09 | Outpatient (CLI) | payer MEDICAID ==
[2018-09-11 12:49] LABS: BASOPHILS % (AUTO) 0.6 %; EOSINOPHILS # (AUTO) 0.1 10^3/uL (0.0-0.7); EOSINOPHILS % (AUTO) 1.9 %; HGB - HEMOGLOBIN 13.1 g/dL (12.0-16.0); LYMPHOCYTES # (AUTO) 1.9 10^3/uL (1.5-3.5); LYMPHOCYTES % (AUTO) 35.3 %; MEAN CORPUSCULAR HEMOGLOBIN 32.1 pg (27.0-31.0); MEAN CORPUSCULAR HGB CONC 34.6 g/dL (32.0-36.0); MEAN CORPUSCULAR VOLUME 92.7 fL (81.0-99.0); MEAN PLATELET VOLUME 8.2 fL (7.9-10.8); MONOCYTES # (AUTO) 0.4 10^3/uL (0.0-1.0); MONOCYTES % (AUTO) 7.9 %; NEUTROPHILS # (AUTO) 2.9 10^3/uL (1.5-6.6); NEUTROPHILS % (AUTO) 54.3 %; PLT - PLATELET COUNT 213 10^3/uL (130-450); RED BLOOD COUNT 4.06 10^6/uL (4.20-5.40); RED CELL DISTRIBUTION WIDTH 12.6 % (12.0-15.0); WHITE BLOOD COUNT 5.3 x10^3/uL (4.8-10.8)
[2018-09-11 12:53] LABS: HCG UR QUAL NEGATIVE
[2018-09-11 12:57] LABS: CALCIUM 8.4 mg/dL (8.5-10.3); CREATININE 0.7 mg/dL (0.4-1.0)
== END 2018-09-11 12:10 | disposition home or self-care (01) ==
LOC: LAB 12:09
PROVIDERS: ATTEND Obstetrics & Gynecology
DX: Z01.812 Encounter for preprocedural laboratory examination (principal); D27.0 Benign neoplasm of right ovary
CPT/HCPCS: 36415; 80048; 81025; 85025; 86850; 86900; 86901

== ENCOUNTER 2018-09-12 09:37 | Day surgery (SDC) | payer MEDICAID ==
[~2018-09-12 09:37] MED LIST: ceFAZolin 2 GM/50 ML 2 GM/50 ML BAG IV ONE
[2018-09-12] MEDS ORDERED: LACTATED RINGERS 1,000 ML IV ONE (10:10)
[2018-09-12] MEDS ORDERED: BUPIVACAINE 0.25%-EPI 1:200000 PF 30 ML VIAL ONE (10:14)
[2018-09-12] MEDS ORDERED: SCOPOLAMINE PATCH TOP ONE (10:22)
--- NOTE | 2018-09-12 10:22 | ANESTHESIA ---
Pre-Anesthesia VS, & Labs - Diagnosis ovarian benign tumor - Procedure laparoscopic ovarian cyst drainage Vital Signs: Temp Pulse Resp BP Pulse Ox 37 C 82 18 146/73 H 97 09/12/18 09:46 09/12/18 09:46 09/12/18 09:46 09/12/18 09:46 09/12/18 09:46 Height 5 ft 4 in Weight (kg) 96 kg Body Mass Index 32.5 - NPO >8 hours - Is Patient ?: No Home Medications and Allergies Home Medications: Ambulatory Orders Ibuprofen 600 mg PO Q8HR 09/12/18 Ibuprofen 600 mg PO Q8HR 09/12/18 Allergies/Adverse Reactions: Allergies Allergy/AdvReac Type Severity Reaction Status Date / Time amoxicillin [Amoxicillin] Allergy Mild Rash Verified 09/11/18 12:27 Anes History & Medical History - Anesthetic History Anesthesia Complications: reports: Post-Operative Nausea/Vomiting Family history of Anesthesia Complications: Denies Family history of Malignant Hyperthermia: Denies - Medical History Cardiovascular: reports: None Pulmonary: reports: Asthma Gastrointestinal: reports: GERD Urinary: reports: None Musculoskeletal: reports: None Endocrine/Autoimmune: reports: None Blood Disorders: reports: None Skin: reports: None Smoking Status: Never smoker - Surgical History Eyes Ears Nose Throat (EENT): Tonsil/Adenoidectomy Gynecologic: Tubal ligation Exam General: Alert, Oriented x3, Cooperative, No acute distress Dental: WNL Mouth Openin Fingerbreadth Neck Mobility: Normal Mallampati classification: II Thyromental Distance: 4-6 cm Respiratory: Lungs clear, Normal breath sounds, No respiratory distress, No accessory muscle use Cardiovascular: Regular rate, Normal S1, Normal S2, No murmurs Mental/Cognitive Status: Alert/Oriented X3, Normal for patient Plan Anesthesia Type: General Consent for Procedure(s) Verified and Reviewed: Yes Code Status: Attempt Resuscitation ASA classification: 2-Mild systemic disease Is this case an emergency?: No
[2018-09-12] MEDS ORDERED: ONDANSETRON 4 MG/2 ML VIAL IVP ONE (10:50)
[2018-09-12] MEDS ORDERED: NEOSTIGMINE 1 MG/1 ML 10 ML MDV IVP ONE (10:50)
[2018-09-12] MEDS ORDERED: GLYCOPYRROLATE 1 MG/5 ML VIAL IVP ONE (10:50)
[2018-09-12] MEDS ORDERED: fentaNYL 100 MCG/2 ML VIAL IVP ONE (10:50)
[2018-09-12] MEDS ORDERED: PROPOFOL 200 MG/20 ML VIAL IVP ONE (10:50)
[2018-09-12] MEDS ORDERED: ROCURONIUM 50 MG/5 ML VIAL IVP ONE (10:50)
[2018-09-12] MEDS ORDERED: LIDOCAINE-MPF 2% 5 ML VIAL IM ONE (10:50)
[2018-09-12] MEDS ORDERED: MIDAZOLAM 2 MG/2 ML VIAL IVP ONE (10:50)
[2018-09-12] MEDS ORDERED: KETOROLAC 30 MG/ML VIAL IVP ONE (10:50)
[2018-09-12] MEDS ORDERED: DEXAMETHASONE 4 MG/ML VIAL IVP ONE (10:50)
[2018-09-12] MEDS ORDERED: BUPIVACAINE 0.25%-EPI 1:200000 PF 30 ML VIAL SUBQ ONE (11:02)
--- NOTE | 2018-09-12 11:58 | OPERATIVE REPORT ---
Operative Report - General Procedure Date: 09/12/18 Planned Procedure: Diagnostic Laproscopy, possible drainage of left ovarian cyst, lysis of adh Pre-Op Diagnosis: noncyclic pelvic pain, 3 cm clet ovarian cyst. Procedure Performed: Diagnostic Laproscopy, Drainage of left ovarian cyst, lysis of adhesons Post Op Diagnosis: 3 cm left ovarian cyst left pelvic side wall adhesions - Procedure Note Primary Surgeon: Satish Grace MD Anesthesia Provider: René Yeager CRNA Anesthesia Technique: General ET tube Pathology: 29 ml of clear fluid from left ovarian cyst IV Fluids (mL): 600 Estimated Blood Loss (mL): 5 Urine Output (mL): 150 Complications: [id number]
[2018-09-12] MEDS ORDERED: LORazepam 2 MG/ML VIAL IVP PRN (12:12)
[2018-09-12] MEDS ORDERED: HYDROcod/ACETAM 5/325 MG TABLET PO PRN (12:12)
[2018-09-12] MEDS ORDERED: ONDANSETRON 4 MG/2 ML VIAL IVP PRN (12:12)
[2018-09-12] MEDS ORDERED: HYDROmorphone 0.5 MG/0.5 ML SYRINGE IVP PRN (12:12)
[2018-09-12] MEDS ORDERED: ACETAMINOPHEN 1,000 MG/100 ML 100 ML IV ONE (12:15)
[2018-09-12] MEDS ORDERED: HYDROcod/ACETAM 5/325 MG TABLET ONE (12:27)
[2018-09-12 13:38] VITALS: BP 122/66
--- NOTE | 2018-09-12 14:36 | OPERATIVE REPORT ---
DATE OF SERVICE: 09/12/2018 Physician: Satish Grace MD PREOPERATIVE DIAGNOSES 1. Noncyclic left-sided pelvic pain. 2. A 3 cm left ovarian cyst. POSTOPERATIVE DIAGNOSES 1. Noncyclic left-sided pelvic pain. 2. A 3 cm left ovarian cyst. PROCEDURE: Diagnostic laparoscopy with drainage of left ovarian cyst and lysis of left pelvic sidewa ll adhesions. SURGEON: Satish Grace MD ANESTHESIA: General via ET tube with René Yeager MD ESTIMATED BLOOD LOSS: 5 mL IV FLUIDS: 600 mL URINE OUTPUT: 150 mL MATERIAL PATHOLOGY: 29 mL of clear cystic fluid from the left ovarian cyst. FINDINGS: Upon entering the abdominal cavity, the abdomen appeared to be without evidence of any inj ury. The left ovary showed evidence of a large ovarian cyst. There was evidence of bilateral tubal ligation. There was also evidence of the large bowel being adhered to the left pelvic sidewall. The appendix appeared to be normal. Ureters were both visualized and showed evidence of good peristalsi s at the end of the case. DESCRIPTION OF PROCEDURE: Following adequate endotracheal anesthesia, the patient was placed in dors al lithotomy position in [facility]. At this point, pelvic examination under anesthesia was perf ormed, which the left ovarian cyst was able to be palpated. Uterine was palpated and felt to be in t he midline position. At this point, she was prepped and draped in the usual fashion. A timeout was performed in which the patient's condition was discussed as well as concerns addressed. A subumbilic al incision was made with a #11 blade following local anesthesia with 0.25% Marcaine with epinephrine . Two towel clamps were placed on either side of the umbilicus for tension and then the 5 mm trocar and sheath were placed under direct visualization on the first pass. The abdomen was insufflated wit h carbon dioxide. There was no evidence of any injury at the insertion site of the trocar. Left and right lower quadrant incisions were made following 0.25% Marcaine with epinephrine transilluminating of the abdominal wall as well as the skin incision with a #11 blade. These were both placed on the first pass. There was no evidence of any bleeding from either site. At this point, the pelvis was inspected. Both tubes were noted to have a tubal ligation as noted his torically. The left ovarian cyst was brought out of the pelvis. The left pelvic sidewall was inspec damon and there was evidence of the large bowel being adhered to this area. The appendix was also insp ected and felt to be normal. The left ovary was then punctured with a laparoscopic needle and clear fluid was removed from the cyst, a total of 29 mL At this point, the LigaSure was used to transect th e adhesions. Care was taken to keep this as clear of the bowel as possible. There is no evidence of any bleeding. At this point, the pelvis was inspected. No further issues were ascertained. The le ft and right lower quadrant laparoscopic ports were removed under direct visualization. There was no evidence of bleeding from either site. The CO2 was allowed to escape following removal of the lapar oscope. At this time, the subumbilical port was removed. These were all injected with 0.25% Marcain e with epinephrine and then closed with Monocryl 4-0 subcuticular. These were then dressed with Derm abond. The instruments were then removed from the vagina. The patient tolerated the procedure well and was taken to recovery in stable condition. Sponge and needle counts were correct. TD: 09/12/2018 12:22
== END 2018-09-12 09:38 | disposition home or self-care (01) ==
LOC: SDS 09:37
PROVIDERS: ATTEND Obstetrics & Gynecology
PROC: 0U914ZZ Drainage of Left Ovary, Percutaneous Endoscopic Approach (ICD-10-PCS; principal; 2018-09-12 10:30)
DX: R10.2 Pelvic and perineal pain (principal); N83.202 Unspecified ovarian cyst, left side; G89.29 Other chronic pain; N73.6 Female pelvic peritoneal adhesions (postinfective); J45.909 Unspecified asthma, uncomplicated; Z98.51 Tubal ligation status
CPT/HCPCS: 49322; A9270; J0131; J0690; J3490; J7120

== ENCOUNTER 2018-11-10 11:18 | Emergency (ER) | payer MEDICAID ==
[2018-11-10 11:37] VITALS: BP 133/86
--- NOTE | 2018-11-10 12:42 | ED Physician Documentation ---
History of Present Illness - Stated complaint Stated Complaint: LT EAR AND EYE PX - Chief complaint Chief Complaint: Heent - Additonal information Additional information: hx from pt 27 y/o denies preg hx asthma all amox to ED with congestion L ear pain L maxillary sinus pain and a cough Review of Systems Constitutional: denies: Fever, Chills Ears: reports: Ear pain Nose: reports: Sinus pressure / pain Respiratory: reports: Cough : denies: Now EGA PD PAST MEDICAL HISTORY - Past Medical History Cardiovascular: None Respiratory: Asthma Endocrine/Autoimmune: None GI: None RHIT: Other HEENT: None Psych: None Musculoskeletal: None Derm: None - Past Surgical History Past Surgical History: Yes /RHIT: Tubal ligation, Other HEENT: Tonsil/Adenoidectomy - Present Medications Home Medications: Ambulatory Orders Medication Instructions Recorded Confirmed Ibuprofen 600 mg PO Q8HR 09/12/18 10/07/18 Ondansetron Odt [Zofran] 4 mg TL Q6H PRN #10 tablet 10/07/18 Azithromycin [Zithromax] 250 mg PO DAILY #6 tablet 11/10/18 Fluticasone [Flonase] 1 sprays HELENA BID PRN #1 bottle 11/10/18 - Allergies Allergies/Adverse Reactions: Allergies Allergy/AdvReac Type Severity Reaction Status Date / Time amoxicillin [Amoxicillin] Allergy Mild Rash Verified 11/10/18 11:37 - Social History Does the pt smoke?: No Smoking Status: Never smoker Does the pt drink ETOH?: No Does the pt have substance abuse?: No - Immunizations Immunizations are current?: Yes Immunizations: TDAP current <10years - POLST Patient has POLST: No PD ED PE NORMAL - Vitals Vital signs reviewed: Yes - HEENT HEENT: Moist mucous membranes, Pharynx benign, Other (L max sinus TTP s erythema or swelling). No: Ears normal (L AOM - bulging with purulent fluid) - Neck Neck: Supple, no meningeal sign - Cardiac Cardiac: RRR - Respiratory Respiratory: No respiratory distress, Clear bilaterally Results - Vitals Vitals: Vital Signs - 24 hr 11/10/18 11:35 Temperature 36.9 C Heart Rate 94 Respiratory 20 Rate Blood Pressure 133/86 H O2 Saturation 98 Oxygen O2 Source Room air Departure - Departure Disposition: 01 Home, Self Care Clinical Impression: Otitis media Qualifiers: Otitis media type: suppurative Chronicity: acute Laterality: left Recurrence: not specified as recurrent Spontaneous tympanic membrane rupture: without spontaneous rupture Qualified Code(s): H66.002 - Acute suppurative otitis media without spontaneous rupture of ear drum, left ear Condition: Good Instructions: ED Otitis Media Acute Adult Follow-Up: Aaliyah Rogers ARNP [Primary Care Provider] - (as needed ) Prescriptions: Azithromycin [Zithromax] 250 mg PO DAILY #6 tablet Fluticasone [Flonase] 1 sprays HELENA BID PRN #1 bottle PRN Reason: sinus ear congestion
== END 2018-11-10 12:49 | disposition home or self-care (01) ==
LOC: ED 11:18
DX: H66.002 Acute suppurative otitis media without spontaneous rupture of ear drum, left ear (principal)
CPT/HCPCS: 99283

== ENCOUNTER 2019-08-20 20:05 | Emergency (ER) | payer MEDICAID ==
[2019-08-20 20:13] VITALS: BP 127/108
--- NOTE | 2019-08-20 21:29 | ED Physician Documentation ---
History of Present Illness - Stated complaint Stated Complaint: L SHOULDER/BACK/NECK/ARM PX - Chief complaint Chief Complaint: Ext Problem - History obtained from History obtained from: Patient - History of Present Illness Timing: How many days ago (last couple of days, per patient) Pain level max: 6 Pain level now: 3 Improved by: rest Worsened by: rotation of head (turning head to left) - Additonal information Additional information: c/o left shoulder pain x several days, constant and progressive in intensity. she now has pain left side of neck that radiates to left shoulder and down LUE, worse with turning head to left. denies injury, denies h/o similar symptoms Review of Systems Constitutional: reports: Reviewed and negative Cardiac: reports: Reviewed and negative Respiratory: reports: Reviewed and negative Skin: denies: Rash Musculoskeletal: reports: Neck pain. 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 : None HEENT: None Psych: None Musculoskeletal: Other Derm: None Other Past Medical History: juvenile arthritis - Past Surgical History Past Surgical History: Yes /REAL ESTATE RECRUITER: Tubal ligation, Other HEENT: Tonsil/Adenoidectomy - Present Medications Home Medications: Ambulatory Orders Medication Instructions Recorded Confirmed Ibuprofen 600 mg PO Q8HR 09/12/18 10/07/18 Ondansetron Odt [Zofran] 4 mg TL Q6H PRN #10 tablet 10/07/18 Azithromycin [Zithromax] 250 mg PO DAILY #6 tablet 11/10/18 Fluticasone [Flonase] 1 sprays HELENA BID PRN #1 bottle 11/10/18 Hydrocodone/Acetaminophen 1 - 2 each PO Q6H PRN #14 tablet 08/20/19 [Hydrocodon-Acetaminophen 5-325] diazePAM [Valium] 5 - 10 mg PO TID PRN #15 tablet 08/20/19 - Allergies Allergies/Adverse Reactions: Allergies Allergy/AdvReac Type Severity Reaction Status Date / Time amoxicillin [Amoxicillin] Allergy Mild Rash Verified 08/20/19 20:09 - Social History Does the pt smoke?: No Smoking Status: Never smoker Does the pt drink ETOH?: No Does the pt have substance abuse?: No Substance Use and Type: Marijuana - Immunizations Immunizations are current?: Yes Immunizations: TDAP current <10years - POLST Patient has POLST: No PD ED PE NORMAL - Vitals Vital signs reviewed: Yes - General General: Alert and 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, No acute distress, Well developed/nourished, Other (NAD at rest but obvious discomfort with rotation of head to left) - Neck Neck: Supple, no meningeal sign - Cardiac Cardiac: RRR, No murmur - Respiratory Respiratory: No respiratory distress, Clear bilaterally - Derm Derm: No rash - Extremities Extremities: No deformity, No tenderness to palpate, No edema - Neuro Neuro: Alert and 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, 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, No motor deficit, No sensory deficit, Normal speech Results - Vitals Vitals: Oxygen O2 Source Room air PD MEDICAL DECISION MAKING - ED course Complexity details: reviewed results, re-evaluated patient, considered differential, d/w patient Departure - Departure Disposition: 01 Home, Self Care Clinical Impression: Cervical radiculopathy Condition: Good Instructions: ED Cervical Radiculopathy Follow-Up: Aaliyah Rogers ARNP [Primary Care Provider] - Within 3 Days Prescriptions: diazePAM [Valium] 5 - 10 mg PO TID PRN #15 tablet PRN Reason: Spasms Hydrocodone/Acetaminophen [Hydrocodon-Acetaminophen 5-325] 1 - 2 each PO Q6H PRN #14 tablet PRN Reason: pain Discharge Date/Time: 08/20/19 22:19
[2019-08-20] MEDS ORDERED: DEXAMETHASONE 10 MG/ML VIAL PO STA (21:53)
[2019-08-20] MEDS ORDERED: CHERRY SYRUP 10 ML UDC PO ONE (21:53)
[2019-08-20] MEDS ORDERED: diazePAM 5 MG TABLET PO STA (21:53)
[2019-08-20] MEDS ORDERED: HYDROcod/ACETAM 5/325 MG TABLET PO STA (21:53)
== END 2019-08-20 22:19 | disposition home or self-care (01) ==
LOC: ED 20:05
DX: M54.12 Radiculopathy, cervical region (principal); Z87.39 Personal history of other diseases of the musculoskeletal system and connective tissue
CPT/HCPCS: 99282; 99284; A9270

== ENCOUNTER 2019-08-26 02:44 | Emergency (ER) | payer MEDICAID ==
[2019-08-26 02:55] VITALS: BP 145/112
--- NOTE | 2019-08-26 03:12 | ED Physician Documentation ---
PD HPI NECK PAIN - Stated complaint Stated Complaint: NECK,BACK PX - Chief complaint Chief Complaint: Trauma Hd/Nk - History obtained from History obtained from: Patient - History of Present Illness Timing - onset: How many weeks ago (1) Timing - details: Gradual onset, Still present, Waxing and waning Pain level now: 8 Location: Mid, Lower, Left Quality: Pain, Spasm, Similar to prior episodes Associated symptoms: No: Fever, Weakness, Numbness, Incontinent of urine, Unable to urinate, Hematuria, Incontinent of stool Improves with: Rest Worsened by: Movement Similar symptoms before: No diagnosis Recently seen: Emergency Dept - Additional information Additional information: T+R from this ED 6 days ago for same symptoms, returns due to ongoing symptoms. was getting adequate relief with prescribed valium and vicodin but she is out of these medications. she says she has an appointment with PMD in about a week or two (she says this was the earliest appointment they had for her), and that she has called several times to inquire about sooner appointment or cancellations without success. she c/o left neck pain that radiates to left trapezius, shoulder, and down LUE. there is a distinct exacerbation with movement; specifically when she turns her head to the left. over past few days, it has also been exacerbated when turning head to right, as well. denies injury Review of Systems Constitutional: reports: Reviewed and negative Cardiac: reports: Reviewed and negative Respiratory: reports: Reviewed and negative Skin: denies: Rash Musculoskeletal: reports: Neck pain. 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: Tubal ligation, Other HEENT: Tonsil/Adenoidectomy - Present Medications Home Medications: Ambulatory Orders Medication Instructions Recorded Confirmed Ibuprofen 600 mg PO Q8HR 09/12/18 10/07/18 Ondansetron Odt [Zofran] 4 mg TL Q6H PRN #10 tablet 10/07/18 Azithromycin [Zithromax] 250 mg PO DAILY #6 tablet 11/10/18 Fluticasone [Flonase] 1 sprays HELENA BID PRN #1 bottle 11/10/18 Hydrocodone/Acetaminophen 1 - 2 each PO Q6H PRN #14 tablet 08/20/19 [Hydrocodon-Acetaminophen 5-325] diazePAM [Valium] 5 - 10 mg PO TID PRN #15 tablet 08/20/19 Cyclobenzaprine [Flexeril] 10 mg PO TID PRN #20 tablet 08/26/19 Oxycodone HCl/Acetaminophen 1 - 2 each PO Q6H PRN #14 tablet 08/26/19 [Percocet 5-325 mg Tablet] diazePAM [Valium] 5 - 10 mg PO TID PRN #15 tablet 08/26/19 - Allergies Allergies/Adverse Reactions: Allergies Allergy/AdvReac Type Severity Reaction Status Date / Time amoxicillin [Amoxicillin] Allergy Mild Rash Verified 08/26/19 02:55 - Social History Does the pt smoke?: No Smoking Status: Never smoker Does the pt drink ETOH?: No Does the pt have substance abuse?: No - Immunizations Immunizations are current?: Yes Immunizations: TDAP current <10years - POLST Patient has POLST: No PD ED PE NORMAL - Vitals Vital signs reviewed: Yes - General General: Alert and 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, Well developed/nourished, Other (appears uncomfortable, tearful at times, due to pain. she holds her head steady in neutral position and appears to have sudden exacerbation of pain when turning head to left) - HEENT HEENT: Atraumatic, PERRL, EOMI, Moist mucous membranes, Pharynx benign - Neck Neck: Supple, no meningeal sign, No bony TTP, Thyroid normal - Cardiac Cardiac: RRR, No murmur - Respiratory Respiratory: No respiratory distress, Clear bilaterally - Derm Derm: Normal color, Warm and dry, No rash - Extremities Extremities: No edema - Neuro Neuro: Alert and 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, software support specialist 2-12 intact, No motor deficit, No sensory deficit Results - Vitals Vitals: Oxygen O2 Source Room air - Rads (name of study) CT cervical spine Radiology: Prelim report reviewed, See rad report PD MEDICAL DECISION MAKING - ED course Complexity details: reviewed old records, reviewed results, re-evaluated patient, considered differential, d/w patient ED course: patient appeared more comfortable and reported some relief with IM dilaudid and po valium. unremarkable CT. she will return if worse or new signs/symptoms develop (such as fever, rash, numbness, weakness), and will continue to pursue f/u. prescriptions for percocet, valium, and flexeril provided Departure - Departure Disposition: Home, Self Care Clinical Impression: Cervical radiculopathy Condition: Good Instructions: ED Cervical Radiculopathy Follow-Up: Aaliyah Rogers ARNP [Primary Care Provider] - Prescriptions: Cyclobenzaprine [Flexeril] 10 mg PO TID PRN #20 tablet PRN Reason: Spasms diazePAM [Valium] 5 - 10 mg PO TID PRN #15 tablet PRN Reason: Spasms Oxycodone HCl/Acetaminophen [Percocet 5-325 mg Tablet] 1 - 2 each PO Q6H PRN #14 tablet PRN Reason: pain Discharge Date/Time: 08/26/19 06:20
[2019-08-26] MEDS ORDERED: HYDROmorphone 1 MG/ML CARPUJECT IM STA (03:59)
[2019-08-26] MEDS ORDERED: diazePAM 5 MG TABLET PO STA (03:59)
--- NOTE | 2019-08-26 04:53 | CT Report ---
Reason: neck pain Procedure Date: 08/26/2019 Accession Number: [id number] / [id number] Procedure: CT - CERVICAL SPINE WO CPT Code: FULL RESULT: EXAM: CT CERVICAL SPINE WITHOUT CONTRAST DATE: 08/26/2019 04:24 AM. HISTORY: Neck pain. COMPARISONS: None. TECHNIQUE: Thin-section axial images were acquired of the cervical spine without contrast. Post-processing: Coronal and sagittal reformats. Other: None. In accordance with CT protocol optimization, one or more of the following dose reduction techniques were utilized for this exam: automated exposure control, adjustment of mA and/or KV based on patient size, or use of iterative reconstructive technique. FINDINGS: Alignment: There is loss of the typical cervical or doses with mild cervical kyphosis centered at the C4-C5 level. Bones: There are no fractures no subluxations of the cervical spine. Interspace Levels/Facets: There are no discernible disk protrusions. There is no significant central canal stenosis. Other: The paravertebral and prevertebral soft tissues are unremarkable. The lung apices are clear. IMPRESSION: 1. Cervical kyphosis as described and certain etiology. 2. No fractures no subluxations. 3. No discernible disk protrusions. RADIA
[2019-08-26] MEDS ORDERED: ONDANSETRON ODT 4 MG TABLET TL STA (05:53)
[2019-08-26] MEDS ORDERED: oxyCODONE 5 MG TABLET PO STA (05:54)
[2019-08-26] MEDS ORDERED: CYCLOBENZAPRINE 10 MG TABLET PO STA (05:54)
== END 2019-08-26 06:20 | disposition home or self-care (01) ==
LOC: ED 02:44
DX: M54.12 Radiculopathy, cervical region (principal); M40.292 Other kyphosis, cervical region
CPT/HCPCS: 72125; 96372; 99284; A9270; J1170; Q0162

== ENCOUNTER 2019-10-03 08:07 | Emergency (ER) | payer MEDICAID ==
[2019-10-03 08:25] VITALS: BP 151/89
--- NOTE | 2019-10-03 08:47 | ED Physician Documentation ---
PD HPI HEENT - Stated complaint Stated Complaint: LT SIDE EAR PX - Chief complaint Chief Complaint: Heent - History obtained from History obtained from: Patient - History of Present Illness Timing - onset: How many days ago (2 days of left ear pain), How many weeks ago (URI symptoms) Timing - duration: Weeks Timing - details: Gradual onset, Still present Location: Left ear (painful for past 2 days without drainage. Has some decreased hearing.) Associated symptoms: Congestion, Rhinorrhea (for 2 weeks), Cough. No: Fever, Facial swelling, Headache Similar symptoms before: Has not had sx before Review of Systems Constitutional: reports: Myalgias. 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: Tubal ligation, Other HEENT: Tonsil/Adenoidectomy - Present Medications Home Medications: Ambulatory Orders Medication Instructions Recorded Confirmed Ibuprofen 600 mg PO Q8HR 09/12/18 10/07/18 Ondansetron Odt [Zofran] 4 mg TL Q6H PRN #10 tablet 10/07/18 Azithromycin [Zithromax] 250 mg PO DAILY #6 tablet 11/10/18 Fluticasone [Flonase] 1 sprays HELENA BID PRN #1 bottle 11/10/18 Hydrocodone/Acetaminophen 1 - 2 each PO Q6H PRN #14 tablet 08/20/19 [Hydrocodon-Acetaminophen 5-325] diazePAM [Valium] 5 - 10 mg PO TID PRN #15 tablet 08/20/19 Cyclobenzaprine [Flexeril] 10 mg PO TID PRN #20 tablet 08/26/19 Oxycodone HCl/Acetaminophen 1 - 2 each PO Q6H PRN #14 tablet 08/26/19 [Percocet 5-325 mg Tablet] diazePAM [Valium] 5 - 10 mg PO TID PRN #15 tablet 08/26/19 Azithromycin [Zithromax] 0 mg PO DAILY #6 tablet 10/03/19 Benzonatate [Tessalon Perle] 100 mg PO TID PRN #25 capsule 10/03/19 Cetirizine [ZyrTEC] 10 mg PO DAILY #15 tablet 10/03/19 dexAMETHasone [Decadron] 4 mg PO DAILY #5 tablet 10/03/19 - Allergies Allergies/Adverse Reactions: Allergies Allergy/AdvReac Type Severity Reaction Status Date / Time amoxicillin [Amoxicillin] Allergy Mild Rash Verified 08/26/19 02:55 - Social History Does the pt smoke?: No Smoking Status: Never smoker Does the pt drink ETOH?: No Does the pt have substance abuse?: No - Immunizations Immunizations are current?: Yes Immunizations: TDAP current <10years - POLST Patient has POLST: No PD ED PE NORMAL - Vitals Vital signs reviewed: Yes - General General: Alert and 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, No acute distress, Well developed/nourished - HEENT HEENT: Pharynx benign. No: Ears normal (right is okay; left with redness and fluid of the TM. ) - Neck Neck: Supple, no meningeal sign, No adenopathy - Cardiac Cardiac: RRR, No murmur - Respiratory Respiratory: Clear bilaterally - Abdomen Abdomen: Soft, Non tender - Derm Derm: Normal color, Warm and dry Results - Vitals Vitals: Vital Signs - 24 hr 10/03/19 08:21 Temperature 37.0 C Heart Rate 113 H Respiratory 18 Rate Blood Pressure 151/89 H O2 Saturation 97 Oxygen O2 Source Room air PD MEDICAL DECISION MAKING - ED course Complexity details: considered differential, d/w patient Departure - Departure Disposition: 01 Home, Self Care Clinical Impression: Upper respiratory infection Qualifiers: URI type: unspecified URI Qualified Code(s): J06.9 - Acute upper respiratory i nfection, unspecified Otitis media Qualifiers: Otitis media type: serous Chronicity: acute Laterality: left Recurrence: non- recurrent Qualified Code(s): H65.02 - Acute serous otitis media, left ear Condition: Stable Record reviewed to determine appropriate education?: Yes Instructions: ED Upper Resp Infec No Abx Tx, ED Otitis Media Acute Adult Follow-Up: Gruenwald,Aaliyah S, TUBE COATER [Primary Care Provider] - Prescriptions: Azithromycin [Zithromax] 0 mg PO DAILY #6 tablet Benzonatate [Tessalon Perle] 100 mg PO TID PRN #25 capsule PRN Reason: Cough Cetirizine [ZyrTEC] 10 mg PO DAILY #15 tablet dexAMETHasone [Decadron] 4 mg PO DAILY #5 tablet Comments: Stay well-hydrated. Tylenol or ibuprofen for fevers or pains. It sounds like the main symptoms with a hoarse voice and cough and ear pain are likely viral with inflammation and congestion. It does look like some fluid buildup behind the left eardrum. There may be an separate infection developing as well. We would treat the inflammation and congestion with cetirizine and Decadron. You can add in your albuterol inhaler 2 puffs if needed for wheeziness or cough. Also add Zithromax antibiotic for potential bacterial component to the ear infection. I would anticipate improvement on your symptoms generally over the next few days with the above medicines. Recheck if not improving well or if worsening Discharge Date/Time: 10/03/19 09:12
[2019-10-03] MEDS ORDERED: CHERRY SYRUP 10 ML UDC PO ONE (09:00)
[2019-10-03] MEDS ORDERED: ACETAMINOPHEN 325 MG TABLET PO STA (09:00)
[2019-10-03] MEDS ORDERED: DEXAMETHASONE 10 MG/ML VIAL PO STA (09:00)
== END 2019-10-03 09:12 | disposition home or self-care (01) ==
LOC: ED 08:07
DX: H65.02 Acute serous otitis media, left ear (principal); J06.9 Acute upper respiratory infection, unspecified
CPT/HCPCS: 99284; A9270

== ENCOUNTER 2019-12-31 10:24 | Emergency (ER) | payer MEDICAID ==
--- NOTE | 2019-12-31 11:49 | ED Physician Documentation ---
PD HPI URI - Stated complaint Stated Complaint: COLD SX - Chief complaint Chief Complaint: Resp - History obtained from History obtained from: Patient - History of Present Illness Timing - onset: How many weeks ago (2) Timing duration: Weeks (2) Timing details: Gradual onset, Still present (worse the past few days) Associated symptoms: Chills, Productive cough, Dyspnea. No: Fever, Hemoptysis, NVD Contributing factors: No: Sick contact, Travel, Immunocompromised, COPD / asthma Similar symptoms before: Has not had sx before Review of Systems Constitutional: reports: Chills, Myalgias. denies: Fever Nose: reports: Congestion. denies: Rhinorrhea / runny nose Throat: reports: Sore throat Respiratory: reports: Dyspnea, Cough GI: reports: Nausea. 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, Other HEENT: Tonsil/Adenoidectomy - Present Medications Home Medications: Ambulatory Orders Medication Instructions Recorded Confirmed Albuterol Sulfate [Proair Hfa 1 puffs INH QID PRN 12/31/19 12/31/19 Inhaler] Benzonatate [Tessalon Perle] 100 - 200 mg PO TID PRN #30 capsule 12/31/19 Doxycycline Monohydrate 100 mg PO BID #14 tablet 12/31/19 dexAMETHasone [Decadron] 4 mg PO DAILY #5 tablet 12/31/19 - Allergies Allergies/Adverse Reactions: Allergies Allergy/AdvReac Type Severity Reaction Status Date / Time amoxicillin [Amoxicillin] Allergy Mild Rash Verified 12/31/19 10:34 - Social History Does the pt smoke?: No Smoking Status: Never smoker Does the pt drink ETOH?: No Does the pt have substance abuse?: No - Immunizations Immunizations are current?: Yes Immunizations: TDAP current <10years - POLST Patient has POLST: No PD ED PE NORMAL - Vitals Vital signs reviewed: Yes - General General: Alert and 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, No acute distress, Well developed/nourished - HEENT HEENT: Moist mucous membranes, Pharynx benign - Neck Neck: Supple, no meningeal sign, No adenopathy - Cardiac Cardiac: RRR, No murmur - Respiratory Respiratory: Clear bilaterally - Abdomen Abdomen: Soft, Non tender - Derm Derm: Normal color, Warm and dry - Extremities Extremities: No edema, No calf tenderness / cord - Neuro Neuro: Alert and 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, No motor deficit, Normal speech Results - Vitals Vitals: Vital Signs - 24 hr 12/31/19 12/31/19 10:31 12:47 Temperature 36.6 C Heart Rate 74 74 Respiratory 18 16 Rate Blood Pressure 121/77 135/97 H O2 Saturation 94 100 Oxygen O2 Source Room air - Rads (name of study) chest xray Radiology: Prelim report reviewed (no infiltrates), See rad report PD MEDICAL DECISION MAKING - ED course Complexity details: considered differential (ill for 2 weeks and now worse cough. Consider bacterial secondary infection. ), d/w patient Departure - Departure Disposition: 01 Home, Self Care Clinical Impression: Bronchitis Upper respiratory infection Qualifiers: URI type: unspecified URI Qualified Code(s): J06.9 - Acute upper respiratory infection, unspecified Condition: Stable Record reviewed to determine appropriate education?: Yes Instructions: ED Upper Resp Infec Abx Tx Follow-Up: Aaliyah Rogers ARNP [Primary Care Provider] - Prescriptions: Benzonatate [Tessalon Perle] 100 - 200 mg PO TID PRN #30 capsule PRN Reason: Cough dexAMETHasone [Decadron] 4 mg PO DAILY #5 tablet Doxycycline Monohydrate 100 mg PO BID #14 tablet Comments: Off work today in the next 1 to 2 days as needed. Use your albuterol inhaler 2 puffs 4 times a day for the next week and extra times as needed. Use doxycycline for potential bacterial component. Most of these are viral at the onset but yours may sounds like it may have some bacterial component. Decadron for inflammation of the airways to help open it up. Tessalon if needed for cough. Recheck if not improving well over the next several days. Stay well-hydrated and Tylenol or ibuprofen for fevers and pains. Forms: Activity restrictions Discharge Date/Time: 12/31/19 12:51
--- NOTE | 2019-12-31 11:55 | XRAY Report ---
Reason: cough Procedure Date: 12/31/2019 Accession Number: [id number] / [id number] Procedure: XR - Chest 2 View X-Ray CPT Code: 79124 Final Report FULL RESULT: EXAM: CHEST RADIOGRAPHY EXAM DATE: 12/31/2019 11:50 AM. CLINICAL HISTORY: Cough. COMPARISON: CHEST 2 VIEW PA/LAT 11/24/2014 9:12 AM. TECHNIQUE: 2 views. FINDINGS: Lungs/Pleura: No focal opacities evident. No pleural effusion. No pneumothorax. Normal volumes. Mediastinum: Heart and mediastinal contours are unremarkable. Other: None. IMPRESSION: Normal 2-view chest radiography. RADIA
[2019-12-31] MEDS ORDERED: DOXYCYCLINE 100 MG TABLET PO STA (12:24)
[2019-12-31] MEDS ORDERED: DEXAMETHASONE 10 MG/ML VIAL PO STA (12:24)
[2019-12-31] MEDS ORDERED: BENZONATATE 100 MG CAPSULE PO STA (12:24)
[2019-12-31] MEDS ORDERED: CHERRY SYRUP 10 ML UDC PO ONE (12:24)
[2019-12-31 17:17] VITALS: BP 135/97
== END 2019-12-31 12:51 | disposition home or self-care (01) ==
LOC: ED 10:24
DX: J06.9 Acute upper respiratory infection, unspecified (principal); J40 Bronchitis, not specified as acute or chronic
CPT/HCPCS: 71046; 99283; 99284; A9270

== ENCOUNTER 2020-05-12 15:30 | Outpatient (CLI) | payer MEDICAID | END 2020-05-12 23:59 | disposition home or self-care (01) | LOC: LAB 15:30 | PROVIDERS: ATTEND Family Medicine | DX: U07.1 COVID-19 (principal) ==

== ENCOUNTER 2020-06-15 07:00 | Outpatient (CLI) | payer MEDICAID ==
[2020-06-16 18:54] LABS: CANDIDA GROUP DNA NEGATIVE (NEGATIVE); CANDIDA KRUSEI DNA NEGATIVE (NEGATIVE); TRICHOMONAS VAGINALIS DNA NEGATIVE (NEGATIVE)
== END 2020-06-15 23:59 | disposition home or self-care (01) ==
LOC: LAB.R 07:00
PROVIDERS: ATTEND Obstetrics & Gynecology
DX: B37.9 Candidiasis, unspecified (principal)
CPT/HCPCS: 87661; 87801

== ENCOUNTER 2020-07-01 09:41 | Outpatient (CLI) | payer MEDICAID ==
[2020-07-01 12:07] LABS: MEAN CORPUSCULAR HEMOGLOBIN 30.2 pg (27.0-31.0); MEAN CORPUSCULAR HGB CONC 31.4 g/dL (32.0-36.0); MEAN PLATELET VOLUME 10.9 fL (7.9-10.8); RED BLOOD COUNT 3.98 10^6/uL (4.20-5.40); RED CELL DISTRIBUTION WIDTH 12.7 % (12.0-15.0); WHITE BLOOD COUNT 5.3 x10^3/uL (4.8-10.8)
[2020-07-01 12:26] LABS: HEMOGLOBIN A1c% 4.9 % (4.27-6.07)
[2020-07-01 12:35] LABS: PROLACTIN 9.27 ng/mL
[2020-07-01 12:38] LABS: ALBUMIN 3.8 g/dL (3.2-5.5); ALBUMIN/GLOBULIN RATIO 1.4 (1.0-2.2); ALKALINE PHOSPHATASE 68 IU/L (42-121); ALT ALANINE AMINOTRANSFERASE 26 IU/L (10-60); AST ASPARTATE AMINOTRANSFERASE 20 IU/L (10-42); BILIRUBIN,TOTAL 0.7 mg/dL (0.2-1.0); BUN - BLOOD UREA NITROGEN 14 mg/dL (6-20); CALCIUM 8.7 mg/dL (8.5-10.3); CARBON DIOXIDE - CO2 24 mmol/L (21-32); CHLORIDE 108 mmol/L (101-111); CHOL/HDL RATIO 3.7 (<4.4); CHOLESTEROL 146 mg/dL; CREATININE 0.8 mg/dL (0.4-1.0); GLUCOSE 88 mg/dL (70-100); HDL CHOLESTEROL 40 mg/dL; LDL CHOLESTEROL,CALCULATED 90 mg/dL; LDL/HDL RATIO 2.3 (<4.4); SODIUM 137 mmol/L (135-145); TOTAL PROTEIN 6.5 g/dL (6.7-8.2); VLDL CHOLESTEROL 16 mg/dL
== END 2020-07-01 23:59 | disposition home or self-care (01) ==
LOC: LAB.WCP 09:41
PROVIDERS: ATTEND Obstetrics & Gynecology
DX: Z00.00 Encounter for general adult medical examination without abnormal findings (principal); N92.6 Irregular menstruation, unspecified; Z13.1 Encounter for screening for diabetes mellitus; L65.9 Nonscarring hair loss, unspecified; R63.5 Abnormal weight gain; N92.0 Excessive and frequent menstruation with regular cycle
CPT/HCPCS: 36415; 80053; 80061; 81599; 83036; 83498; 83721; 84146; 84403; 84443; 85027

== ENCOUNTER 2020-07-07 09:23 | Outpatient (CLI) | payer MEDICAID | END 2020-07-07 09:24 | disposition home or self-care (01) | LOC: LAB 09:23 | PROVIDERS: ATTEND Obstetrics & Gynecology | DX: Z13.1 Encounter for screening for diabetes mellitus (principal); Z13.220 Encounter for screening for lipoid disorders | CPT/HCPCS: 36415; 82951 ==

== ENCOUNTER 2020-07-17 07:49 | Outpatient (CLI) | payer MEDICAID ==
--- NOTE | 2020-07-17 12:15 | Ultrasound Report ---
PROCEDURE: Head or Neck Soft Tissue INDICATIONS: LYMPHADENOPATHY, ABN VOICE TECHNIQUE: Real time scanning was performed of the neck region of interest, with image documentation . COMPARISON: None. FINDINGS: The thyroid gland measures 2.0 x 1.7 x 5.1 cm on the right and 1.5 x 1.7 x 4.4 cm on the le ft with a 2 mm isthmus. No mass identified. Normal size lymph nodes are present. No soft tissue mass lesion or glandular mass lesion is found. IMPRESSION: Source of alteration of voice is not identified. This may indicate a mediastinal or deep cervical les ion or inflammatory process not identified by this examination. Contrast enhanced CT scanning may be warranted depending on the clinical status. Reviewed by: Tan Perry MD on 07/17/2020 12:13 PM PDT Approved by: Tan Perry MD on 07/17/2020 12:13 PM PDT Station ID: [id number]
--- NOTE | 2020-07-17 16:39 | Ultrasound Report ---
PROCEDURE: Pelvic w/Transvaginal INDICATIONS: IRREGULAR MENSTRATION, PELVIC PAIN TECHNIQUE: Real-time scanning was performed of the pelvic organs, with image documentation. Additional endovagi nal scanning was necessary due to incomplete visualization of the adnexal and endometrial structures by transabdominal scanning. COMPARISON: None. FINDINGS: Transabdominal scanning: Limited scanning through the kidneys shows no hydronephrosis. No pathologi c free abdominal or pelvic fluid. Endovaginal scanning: Uterus: Uterus is normal in size at 8.7 x 4.2 x 6.7 cm. The endometrium measures 2 mm in combined t hickness. Ovaries: Right ovary measures 31 x 21 x 27 mm. Left ovary measures 65 x 51 x 49 mm. Multiple hypoech oic foci are present, largest measuring 57 x 45 x 51 mm. Miscellaneous: Left renal cyst is present measuring 14 x 11 x 12 mm. IMPRESSION: 1. Left ovarian cysts. 2. Left renal cyst. Reviewed by: Susanne Landa MD on 07/17/2020 4:38 PM PDT Approved by: Susanne Landa MD on 07/17/2020 4:38 PM PDT Station ID: [id number]
== END 2020-07-17 07:50 | disposition home or self-care (01) ==
LOC: DI 07:49
PROVIDERS: ATTEND Obstetrics & Gynecology
DX: N92.6 Irregular menstruation, unspecified (principal); R10.2 Pelvic and perineal pain; R59.1 Generalized enlarged lymph nodes; R49.9 Unspecified voice and resonance disorder; N83.202 Unspecified ovarian cyst, left side; N28.1 Cyst of kidney, acquired
CPT/HCPCS: 76536; 76830; 76856

== ENCOUNTER 2020-08-06 08:00 | Outpatient (CLI) | payer MEDICAID ==
[2020-08-06 20:26] LABS: CANDIDA GROUP DNA NEGATIVE (NEGATIVE); CANDIDA KRUSEI DNA NEGATIVE (NEGATIVE); TRICHOMONAS VAGINALIS DNA NEGATIVE (NEGATIVE)
== END 2020-08-06 23:59 | disposition home or self-care (01) ==
LOC: LAB.R 08:00
PROVIDERS: ATTEND Obstetrics & Gynecology
DX: N89.8 Other specified noninflammatory disorders of vagina (principal)
CPT/HCPCS: 87661; 87801

== ENCOUNTER 2020-09-25 12:01 | Outpatient (CLI) | payer MEDICAID ==
[2020-09-25 12:34] LABS: BASOPHILS % (AUTO) 0.8 %; EOSINOPHILS # (AUTO) 0.1 10^3/uL (0.0-0.7); HGB - HEMOGLOBIN 13.6 g/dL (12.0-16.0); LYMPHOCYTES # (AUTO) 1.8 10^3/uL (1.5-3.5); LYMPHOCYTES % (AUTO) 36.5 %; MEAN CORPUSCULAR VOLUME 93.8 fL (81.0-99.0); MEAN PLATELET VOLUME 9.5 fL (7.9-10.8); MONOCYTES # (AUTO) 0.3 10^3/uL (0.0-1.0); MONOCYTES % (AUTO) 6.1 %; NEUTROPHILS # (AUTO) 2.7 10^3/uL (1.5-6.6); NEUTROPHILS % (AUTO) 54.4 %; PLT - PLATELET COUNT 194 10^3/uL (130-450); RED BLOOD COUNT 4.39 10^6/uL (4.20-5.40); RED CELL DISTRIBUTION WIDTH 12.1 % (12.0-15.0); WHITE BLOOD COUNT 4.9 x10^3/uL (4.8-10.8)
== END 2020-09-25 12:02 | disposition home or self-care (01) ==
LOC: LAB 12:01
PROVIDERS: ATTEND Obstetrics & Gynecology
DX: Z01.818 Encounter for other preprocedural examination (principal); R10.2 Pelvic and perineal pain; Z20.828 Contact with and (suspected) exposure to other viral communicable diseases
CPT/HCPCS: 85025

== ENCOUNTER 2020-10-01 07:41 | Day surgery (SDC) | payer MEDICAID ==
[~2020-10-01 07:41] MED LIST changes: +ACETAMINOPHEN 1,000 MG/100 ML 100 ML IV ONE; +CEFAZOLIN SODIUM IN 0.9 % NACL 2 GM/100 ML BAG IV ONE; +CELECOXIB 100 MG CAPSULE PO ONE; +GABAPENTIN 400 MG CAPSULE ONE; +PHENAZOPYRIDINE 100 MG TABLET PO ONE; -ceFAZolin 2 GM/50 ML 2 GM/50 ML BAG IV ONE
[2020-10-01 08:02] LABS: HCG UR QUAL NEGATIVE
[2020-10-01] MEDS ORDERED: LACTATED RINGERS 1,000 ML IV ONE ×2 (08:12→12:13)
--- NOTE | 2020-10-01 08:25 | ANESTHESIA ---
Pre-Anesthesia VS, & Labs - Diagnosis Pelvic Pain - Procedure LAVH, Left SO, Cysto, Possible Open Height: 5 ft 5 in - NPO >8 hours - Is Patient ?: No Home Medications and Allergies Home Medications: Ambulatory Orders Spironolactone [Aldactone] 50 mg PO DAILY 09/22/20 Albuterol Sulfate [Proair Hfa Inhaler] 1 puffs INH QID PRN 12/31/19 Spironolactone [Aldactone] 50 mg PO DAILY 09/22/20 Allergies/Adverse Reactions: Allergies Allergy/AdvReac Type Severity Reaction Status Date / Time amoxicillin [Amoxicillin] Allergy Mild Rash Verified 12/31/19 10:34 Anes History & Medical History - Anesthetic History Anesthesia Complications: reports: No previous complications - Medical History Cardiovascular: reports: Hypertension, Other Pulmonary: reports: Asthma (Exertional, used inhaler wseveral days ago, states breathing good today) Gastrointestinal: reports: None Urinary: reports: Chronic bladder infection Neuro: reports: None (Increasing over last several years), Headaches Musculoskeletal: reports: None Endocrine/Autoimmune: reports: None, Other (Right neck swelling, with change in voice, occasional difficulty swallowing. To go for CT.) Blood Disorders: reports: None Skin: reports: None Smoking Status: Never smoker Psychosocial: reports: Anxiety History of Cancer?: No - Surgical History Eyes Ears Nose Throat (EENT): Tonsil/Adenoidectomy Gynecologic: Tubal ligation, Other Exam General: Alert, Oriented x3, Cooperative, Mild distress Dental: WNL (OVerbite) Mouth Openin Fingerbreadth Neck Mobility: Normal Mallampati classification: I Thyromental Distance: 4-6 cm Respiratory: Lungs clear Cardiovascular: Regular rate, Normal S1, Normal S2, No murmurs Plan Anesthesia Type: General Consent for Procedure(s) Verified and Reviewed: Yes Code Status: Attempt Resuscitation ASA classification: 2-Mild systemic disease Is this case an emergency?: Yes (Discussed anesthesia, Consent signed)
[2020-10-01] MEDS ORDERED: HYDROmorphone 0.5 MG/0.5 ML SYRINGE IVP PRN (08:29)
[2020-10-01] MEDS ORDERED: ATROPINE ABBOJECT 1 MG/10 ML SYRINGE IVP PRN (08:29)
[2020-10-01] MEDS ORDERED: MORPHINE 2 MG/ML CARPUJECT IVP PRN (08:29)
[2020-10-01] MEDS ORDERED: NALOXONE 0.4 MG/ML VIAL IVP PRN (08:29)
[2020-10-01] MEDS ORDERED: ePHEDrine 50 MG/ML VIAL IVP PRN (08:29)
[2020-10-01] MEDS ORDERED: METOCLOPRAMIDE 10 MG/2 ML VIAL IVP PRN ×2 (08:29→18:30)
[2020-10-01] MEDS ORDERED: ONDANSETRON 4 MG/2 ML VIAL IVP PRN ×2 (08:29→18:30)
[2020-10-01] MEDS ORDERED: fentaNYL 100 MCG/2 ML VIAL IVP PRN (08:29)
[2020-10-01] MEDS ORDERED: BUPIVACAINE 0.25%-EPI 1:200000 PF 30 ML VIAL ONE ×2 (08:49→10:19)
[2020-10-01] MEDS ORDERED: METHYLENE BLUE 0.5% 50 MG/10 ML AMPULE ONE (08:49)
[2020-10-01] MEDS ORDERED: LACTATED RINGERS 1,000 ML IV SCH (09:00)
[2020-10-01] MEDS ORDERED: GLYCOPYRROLATE 1 MG/5 ML VIAL IVP ONE (09:08)
[2020-10-01] MEDS ORDERED: KETAMINE 500 MG/10 ML VIAL IVP ONE (09:08)
[2020-10-01] MEDS ORDERED: MIDAZOLAM 2 MG/2 ML VIAL IVP ONE (09:08)
[2020-10-01] MEDS ORDERED: ROCURONIUM 50 MG/5 ML VIAL IVP ONE (09:08)
[2020-10-01] MEDS ORDERED: PROPOFOL 200 MG/20 ML VIAL IVP ONE (09:08)
[2020-10-01] MEDS ORDERED: ONDANSETRON 4 MG/2 ML VIAL IVP ONE (09:08)
[2020-10-01] MEDS ORDERED: ACETAMINOPHEN 1,000 MG/100 ML 100 ML IV ONE (09:08)
[2020-10-01] MEDS ORDERED: fentaNYL 100 MCG/2 ML VIAL IVP ONE (09:08)
[2020-10-01] MEDS ORDERED: DEXAMETHASONE 4 MG/ML VIAL IVP ONE (09:08)
[2020-10-01] MEDS ORDERED: NEOSTIGMINE 1 MG/1 ML 10 ML MDV IVP ONE (09:08)
[2020-10-01] MEDS ORDERED: BUPIVACAINE 0.25%-EPI 1:200000 PF 30 ML VIAL SUBQ ONE ×2 (10:17)
[2020-10-01] MEDS ORDERED: LIDOCAINE 2% URO-JET 5 ML SYRINGE UR ONE ×2 (11:58→12:17)
--- NOTE | 2020-10-01 12:10 | OPERATIVE REPORT ---
Operative Report - General Procedure Date: 10/01/20 Planned Procedure: Total laparoscopic assisted vaginal hysterectomy with left salpingo-oophorectomy and cystectomy Pre-Op Diagnosis: same Procedure Performed: Total laparoscopic hysterectomy with bilateral salpingectomy, left sided oophorectomy, and cystoscopy. Post Op Diagnosis: Same - Procedure Note Primary Surgeon: Lupe Soto MD Secondary Surgeon: Brisa Cortes MD and Chin Grace MD Anesthesia Provider: Hieu Lopes CRNA Anesthesia Technique: General ET tube Pathology: Uterus with bilateral fallopian tubes and left ovary. Patient had undergone a tubal ligation prior to procedure. As such, fimbriated end of the fallopian tubes were resected separately from the proximal tubal segments that remained attached to the uterus. IV Fluids (mL): 1,000 Estimated Blood Loss (mL): 25 Urine Output (mL): 225 Indications: Patient is a 29 yo here for hysterectomy and LSO. She had been seen in July 2020 discuss definitive surgical management of her ongoing pelvic pain. She was previously seen in clinic on 06/15/2020 at which time she was seen for chronic pelvic pain . She has undergone BTL. In August of 2018, she had lsc lysis of adhesions and drainage of a left ovarian cyst. She underwent a pelvic us. that showed multiple cysts on her left ovary, the largest measuring 5.7 cm in greatest dimension. The right ovary was unremarkable. She has never had normal menses and has been on COCs from a young age. She would like to avoid further hormonal intervention. She has undergone BTL and has no further desire for childbearing. She has attempted conservative management of her pelvic pain and desires definitive surgical management. She had requested bilateral oophorectomy and we had revi ewed why that would be ill advised. She has had ongoing pain associated with her left ovary and would like it removed. LSO would be an acceptable intervention. She is scheduled for a LAVH with LSO and cystoscopy. Salpingectomy if there are residual fallopian tubes. Findings: Normal appearing uterus and ovaries. Fallopian tubes were s/p tubal ligation and the fimbriated ends were from the proximal tubal segments. Ureteral jets noted bilaterally and no injury to bladder mucosa was noted on postoperative cystoscopic survey. Complications: None - Other Other Information/Narrative: Risks benefits and alternatives of the procedure were reviewed. Consent was again confirmed. Patient was brought to the operating room and underwent general anesthesia. She was placed in dorsal lithotomy position with legs resting in yellowfin stirrups. SCDs were in place and activated. Cefazolin 2 g IV was administered prior to start of procedure. She was prepped and draped in the usual sterile fashion. Surgical timeout was performed. Bimanual exam was performed. Sterile speculum was placed. The cervix was visualized and a total of 20 cc of 0.25% bupivicaine with epinephrine was injected into the uterosacral ligaments. The Bodywork Therapist uterine manipulator was placed, confirming that the cup was flush with the vaginal fornices. It was attached to the Zogenix uterine positioning system. Flannery catheter was placed, the bladder was drained, and the bladder was then back filled with 50 cc of dilute methylene blue. The catheter was then clamped. The base of the umbilicus was anesthetized with intradermal injection of 0.25% Marcaine. A 5 mm skin incision was made with a scalpel. A 5 mm blunt trocar was inserted under direct visualization using Visiport. Once the port was confirmed to be placed intraperitoneally, the abdomen was insufflated to 15 mmHg with CO2 gas Exploration of the abdomen and pelvis was confirmed that no injury was sustained with placement of the trocar. Two additional 5 mm ports were placed in the right and left lower quadrants, taking care to avoid the epigastric arteries, while under direct visualization via laparoscopic guidance. The abdomen was explored with the laparoscope, with findings as noted. The left fallopiann tube was grasped and elevated at the fimbriated end. The underlying mesosalpinx was sealed and resected to the insertion point on the uterine cornua using the Ligasure device. The round ligament on the left aspect of the uterus was sealed/transected/and divided. The left ureter was identified and was noted to be well away from the IP. The left IP was then sealed and transected, released the left ovary. The uterine ovarian ligament was left intact so that the ovary remained attached ot the uterine body. A bladder flap was mobilized by dividing the round ligaments using the bipolar cutting forceps, and the peritoneum on the vesicouterine fold was incised to mobilize the bladder. Once the colpotomy ring was skeletonized and in position, the uterine arteries were sealed using the bipolar forceps at the level of the colpotomy ring. This was repeated on the right aspect of the uterus in the same manner, other than the right ovary was left in situ. The right uteroovarian ligament was transected using the LigaSure bipolar device. The bladder dissection was performed over the colpotomy ring. Colpotomy was performed using monopolar hook, resulting in separation of the uterus. The uterus was then delivered through the vagina. Attention was then turned to the vaginal cuff closure. The right lower quadrant port was removed and the incision was extended to accommodate a 10 mm port. The 5 mm port was replaced with a 10 mm port. V-Loc suture was passed throught the port. The vaginal cuff was closed with a running suture using V-Loc suture. Closure of the cuff was airtight and abdominal insufflation was maintained post closure. Good hemostasis was noted. At no time was spillage of methylene blue noted in the surgical field. The vaginal cuff was visualized internally and noted to have good hemostasis. Abdon-Cristian device was placed in the 10 mm port site, which was then closed under direct visualization. The abdomen was partially desufflated. Pedicles were observed under decreased pressure and good hemostasis was again confirmed. Abdomen was then completely desufflated. All instruments were removed from the abdomen. Skin was closed with interrupted subcuticular stitches using 4-0 Monoc ryl. Dermabond was applied over the suture sites. We then turned our attention to the cystoscopic portion of the procedure. Flannery catheter was removed and the cystoscope was inserted. Bladder was instilled with NS. A survey of the bladder showed no trauma or presence of suture in the bladder topography. Vigorous ureteral jets were observed bilaterally. Cystoscope was removed after bladder was drained. Flannery catheter was replaced. The final sponge needle and instrument counts were correct at completion of the procedure patient was awakened taken to the postanesthesia care unit in stable condition. Dr. Cortes assisted with suturing, retraction, and completion of their side of the hysterectomy. Dr. Grace served as lema for the cystoscopy.
[2020-10-01] MEDS ORDERED: HYDROmorphone 1 MG/ML CARPUJECT IVP PRN (12:28)
[2020-10-01] MEDS ORDERED: SCOPOLAMINE PATCH TOP PRN (12:28)
[2020-10-01] MEDS ORDERED: ONDANSETRON ODT 4 MG TABLET TL PRN (12:28)
[2020-10-01] MEDS ORDERED: SIMETHICONE CHEW 80 MG TABLET PO PRN (12:28)
[2020-10-01] MEDS ORDERED: HYDROmorphone 0.5 MG/0.5 ML SYRINGE ONE ×2 (12:40→13:01)
[2020-10-01] MEDS ORDERED: KETOROLAC 15 MG/ML VIAL ONE (12:48)
[2020-10-01] MEDS: ACETAMINOPHEN 500 MG TABLET PO SCH ×2 (13:36→21:10)
[2020-10-01] MEDS: LACTATED RINGERS 1,000 ML IV SCH ×2 (13:38→17:34)
[2020-10-01] MEDS: KETOROLAC 30 MG/ML VIAL IVP SCH ×2 (13:38→18:40)
[2020-10-01] MEDS: GABAPENTIN 300 MG CAPSULE PO SCH ×2 (13:46→21:10)
--- NOTE | 2020-10-01 15:09 | ANESTHESIA POST OP EVALUATION ---
Anesthesia Post Eval - Post Anesthesia Eval Vitals: Last Vital Signs Temp 36.6 C 10/01/20 14:45 Pulse 70 10/01/20 14:45 Resp 18 10/01/20 14:45 BP 112/62 10/01/20 14:45 Pulse Ox 98 10/01/20 14:45 CV Function Including HR & BP: positive: Stable Pain Control: positive: Satisfactory Nausea & Vomiting: positive: Negative Mental Status: positive: Baseline Respiratory Status: Airway Patent Hydration Status: Satisfactory Anesthesia Complications: positive: None (Discharged to [facility])
[2020-10-01] MEDS: oxyCODONE 5 MG TABLET PO PRN ×2 (17:15→21:30)
--- NOTE | 2020-10-01 18:36 | PROVIDER PROGRESS NOTE ---
Subjective - Prog Note Date Prog Note Date: 10/01/20 Prog Note Time: 18:34 - Subjective Subjective: Patient struggling with nausea. Due for antiemetics. Has been tolerating only may crackers. Having crmaping pain. Flannery in place with ample urine output. Objective - Vital Signs/Intake & Output Vital Signs: Vital Signs x48h Temp Pulse Pulse Resp BP BP Pulse Ox 10/01/20 15:45 97.7 F 60 16 123/78 98 10/01/20 14:45 97.9 F 70 18 112/62 98 10/01/20 13:45 97.5 F L 69 17 121/66 100 10/01/20 13:15 97.5 F L 65 18 126/68 100 10/01/20 13:00 98.6 F 103 H 14 119/75 98 10/01/20 12:55 75 11 L 122/74 99 10/01/20 12:50 72 13 126/70 99 10/01/20 12:45 78 14 126/72 100 10/01/20 12:40 78 14 129/72 99 10/01/20 12:35 98.2 F 77 13 124/75 99 10/01/20 12:30 81 14 130/69 97 10/01/20 12:25 92 15 130/74 98 10/01/20 12:20 93 16 136/80 H 100 10/01/20 12:15 93 17 118/78 100 10/01/20 12:10 97.7 F 103 H 19 141/82 H 100 10/01/20 12:07 97.0 F L 110 H 16 155/85 H 100 Intake & Output: Intake & Output 09/28/20 09/29/20 09/30/20 10/01/20 23:59 23:59 23:59 23:59 Intake Total 893.333 Output Total 325 Balance 568.333 - Objective General Appearance: positive: No acute distress Neck: positive: Nml inspection Respiratory: positive: No respiratory distress Cardiovascular: positive: Other (RR) Abdomen: positive: Other (Soft, ND, and NT. No guarding) Skin: positive: Color nml, Dry Extremities: positive: Non-tender, No pedal edema Neurologic/Psychiatric: positive: Oriented x3 - Lab Results Other Labs: Lab Results x24hrs 1210/01/20 10/01/20 Range/Units 08:16 08:08 07:50 POC Whole Bld Glucose 87 (70 - 100) mg/dL Ur Specific [place] >=1.030 H (1.002-1.030) Urine HCG, Qual NEGATIVE Blood Type A POSITIVE Antibody Screen NEGATIVE Assessment/Plan - Problem List (1) S/P hysterectomy with oophorectomy Impression: POD#0 s/p TLH and LSO with cystocopy Nausea limiting po intake -Added reglan 5 mg IV Q6H and ondansetron 4 mg IV or ODT Q4 H. Has scope patch in place Pain reasonably well controlled. -Due for toradol Flannery in place with 450 cc urine collecting. Will attempt to ambulate later this pm Overall, appears well. Anticipate DC home in am
[2020-10-01] MEDS: ONDANSETRON ODT 4 MG TABLET TL PRN ×2 (18:53→22:57)
[2020-10-01] MEDS: DOCUSATE SODIUM 100 MG CAPSULE PO SCH (21:10)
[2020-10-02] MEDS: KETOROLAC 30 MG/ML VIAL IVP SCH ×2 (01:20→06:05)
[2020-10-02] MEDS: LACTATED RINGERS 1,000 ML IV SCH (03:14)
[2020-10-02 05:48] LABS: BASOPHILS % (AUTO) 0.3 %; EOSINOPHILS % (AUTO) 0.1 %; HGB - HEMOGLOBIN 11.1 g/dL (12.0-16.0); LYMPHOCYTES # (AUTO) 1.6 10^3/uL (1.5-3.5); LYMPHOCYTES % (AUTO) 21.5 %; MEAN CORPUSCULAR HEMOGLOBIN 29.9 pg (27.0-31.0); MEAN CORPUSCULAR HGB CONC 30.9 g/dL (32.0-36.0); MEAN CORPUSCULAR VOLUME 96.8 fL (81.0-99.0); MEAN PLATELET VOLUME 10.6 fL (7.9-10.8); MONOCYTES # (AUTO) 0.6 10^3/uL (0.0-1.0); MONOCYTES % (AUTO) 8.3 %; NEUTROPHILS % (AUTO) 69.4 %; PLT - PLATELET COUNT 182 10^3/uL (130-450); RED BLOOD COUNT 3.71 10^6/uL (4.20-5.40); RED CELL DISTRIBUTION WIDTH 12.5 % (12.0-15.0); WHITE BLOOD COUNT 7.3 x10^3/uL (4.8-10.8)
[2020-10-02] MEDS: GABAPENTIN 300 MG CAPSULE PO SCH (05:52)
[2020-10-02] MEDS: ACETAMINOPHEN 500 MG TABLET PO SCH (05:52)
[2020-10-02] MEDS: ENOXAPARIN 40 MG/0.4 ML SYRINGE SUBQ SCH ×2 (06:04→08:35)
[2020-10-02] MEDS: DOCUSATE SODIUM 100 MG CAPSULE PO SCH (08:45)
[2020-10-02] MEDS: oxyCODONE 5 MG TABLET PO PRN (08:45)
--- NOTE | 2020-10-02 10:12 | PROVIDER PROGRESS NOTE ---
Subjective - Prog Note Date Prog Note Date: 10/02/20 Prog Note Time: 10:09 - Subjective Subjective: Patient has been up and out of bed. Ate 95% of breakfast without emesis. UOP excellent. Flannery catheter remains in place and will be removed now. Pain well managed. Minimal bleeding. Objective - Vital Signs/Intake & Output Reviewed Vital Signs: Yes Vital Signs: Vital Signs x48h Temp Pulse Resp BP Pulse Ox 10/02/20 08:45 98.4 F 84 18 118/73 99 10/02/20 03:17 98.2 F 75 16 117/70 97 Intake & Output: Intake & Output 09/29/20 09/30/20 10/01/20 10/02/20 23:59 23:59 23:59 23:59 Intake Total 1481.666 695 Output Total 1975 700 Balance -493.334 -5 - Objective General Appearance: positive: No acute distress Neck: positive: Nml inspection Respiratory: positive: No respiratory distress, Breath sounds nml Cardiovascular: positive: Regular rate & rhythm Abdomen: positive: Non-tender, Other (S&NT/ND. BS +. Port sites CDI) Skin: positive: Color nml, Warm, Dry, Cyanosis Extremities: positive: No pedal edema Neurologic/Psychiatric: positive: Oriented x3 - Lab Results Fish Bones: 10/02/20 05:35 Other Labs: Lab Results x24hrs 10/02/20 Range/Units 05:35 WBC 7.3 (4.8-10.8) x10^3/uL RBC 3.71 L (4.20-5.40) 10^6/uL Hgb 11.1 L (12.0-16.0) g/dL Hct 35.9 L (37.0-47.0) % MCV 96.8 (81.0-99.0) fL MCH 29.9 (27.0-31.0) pg MCHC 30.9 L (32.0-36.0) g/dL RDW 12.5 (12.0-15.0) % Plt Count 182 (130-450) 10^3/uL MPV 10.6 (7.9-10.8) fL Neut # (Auto) 5.0 (1.5-6.6) 10^3/uL Lymph # (Auto) 1.6 (1.5-3.5) 10^3/uL Martin # (Auto) 0.6 (0.0-1.0) 10^3/uL Eos # (Auto) 0.0 (0.0-0.7) 10^3/uL Baso # (Auto) 0.0 (0.0-0.1) 10^3/uL Absolute Nucleated RBC 0.00 x10^3/uL Nucleated RBC % 0.0 /100WBC Assessment/Plan - Problem List (1) S/P hysterectomy with oophorectomy Impression: POD#1: Patient is doing well Added gabapentin and zofran to outpatient meds Flannery to be removed [place]. OK to DC once voided and PVR is less than 50% Otherwise, meeting goals for discharge Routine DC instructions given
[2020-10-02 13:04] VITALS: BP 143/88
== END 2020-10-02 13:10 | disposition home or self-care (01) ==
LOC: SDS 07:41 → MS2 13:27 → SDS 10-02 13:10
PROVIDERS: ATTEND Obstetrics & Gynecology
PROC: 0UT9FZZ Resection of Uterus, Via Natural or Artificial Opening With Percutaneous Endoscopic Assistance (ICD-10-PCS; principal; 2020-10-01 08:45)
DX: R10.2 Pelvic and perineal pain (principal); J45.909 Unspecified asthma, uncomplicated; M06.9 Rheumatoid arthritis, unspecified; I10 Essential (primary) hypertension; Z87.891 Personal history of nicotine dependence; Z79.51 Long term (current) use of inhaled steroids; Z79.899 Other long term (current) drug therapy
CPT/HCPCS: 58552; 81025; 85025; 86850; 86900; 86901; A9270; J0131; J0690; J1170; J1650; J2765; J3490; J7120; Q0162

== ENCOUNTER 2020-10-04 09:37 | Emergency (ER) | payer MEDICAID ==
[2020-10-04] MEDS ORDERED: ONDANSETRON 4 MG/2 ML VIAL IVP STA (11:06)
[2020-10-04] MEDS ORDERED: LACTATED RINGERS 1,000 ML IV STA (11:06)
[2020-10-04] MEDS ORDERED: KETOROLAC 30 MG/ML VIAL IVP STA (11:16)
--- NOTE | 2020-10-04 11:16 | ED Physician Documentation ---
History of Present Illness - Stated complaint Stated Complaint: POST OP/NAUSEA/HEADACHE - Chief complaint Chief Complaint: General - History obtained from History obtained from: Patient - Additonal information Additional information: 29-year-old woman with history of chronic uterine pain status post total abdominal hysterectomy laparoscopically performed by Dr. Harden, postop day 3 presents with nonbloody nonbilious nausea vomiting and mild frontal headache as well as wound site discomfort . aching constant nonradiating worse with vomiting. Patient has ODT Zofran at home but has not been able to keep it down. Denies fevers. Passing flatus. no urinary symptoms. wound clean and dry. Review of Systems Ten Systems: 10 systems reviewed and negative Constitutional: denies: Fever, Chills, Myalgias GI: reports: Abdominal Pain, Nausea, Vomiting PD PAST MEDICAL HISTORY - Past Medical History Cardiovascular: Hypertension, Other Respiratory: Asthma Neuro: None, Headaches Endocrine/Autoimmune: None, Other GI: None COPY HOLDER: Ovarian cysts : Chronic bladder infection HEENT: Other Psych: Anxiety Musculoskeletal: None Derm: None - Past Surgical History Past Surgical History: Yes /COPY HOLDER: Tubal ligation, Other HEENT: Tonsil/Adenoidectomy - Present Medications Home Medications: Ambulatory Orders Medication Instructions Recorded Confirmed Albuterol Sulfate [Proair Hfa 1 puffs INH QID PRN 12/31/19 10/04/20 Inhaler] Spironolactone [Aldactone] 50 mg PO DAILY 09/22/20 10/04/20 Acetaminophen [Tylenol] 650 mg PO Q6H PRN #90 tablet 09/30/20 10/04/20 Docusate Sodium 100Mg Capsule 100 - 200 mg PO BID PRN #60 capsule 09/30/20 10/04/20 [Colace 100Mg Capsule] Ibuprofen [Motrin] 600 mg PO Q6H PRN #90 tab 09/30/20 10/04/20 oxyCODONE [Roxicodone] 5 mg PO Q4H PRN #24 tablet 09/30/20 10/04/20 Ondansetron Odt [Zofran Odt] 4 mg TL Q4H PRN #30 tablet 10/02/20 10/04/20 - Allergies Allergies/Adverse Reactions: Allergies Allergy/AdvReac Type Severity Reaction Status Date / Time amoxicillin [Amoxicillin] Allergy Mild Rash Verified 12/31/19 10:34 - Social History Does the pt smoke?: No Smoking Status: Never smoker Does the pt drink ETOH?: No Does the pt have substance abuse?: No - Immunizations Immunizations are current?: Yes Immunizations: TDAP current <10years - POLST Patient has POLST: No PD ED PE NORMAL - Vitals Vital signs reviewed: Yes - General General: Alert and 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 - HEENT HEENT: Atraumatic, PERRL, EOMI - Neck Neck: Supple, no meningeal sign - Cardiac Cardiac: RRR - Respiratory Respiratory: No respiratory distress, Clear bilaterally - Abdomen Abdomen: Non tender, Non distended, Other (laparoscopic wounds clean, dry, nonerythematous. discomfort with palpation) - Female Female : Other (brief external vaginal exam normal) - Rectal Rectal: Deferred - Back Back: No CVA TTP - Derm Derm: Normal color - Extremities Extremities: No deformity, No edema Results - Vitals Vitals: Vital Signs - 24 hr 10/04/20 10/04/20 10/04/20 09:41 11:04 12:44 Temperature 36.7 C Heart Rate 84 92 80 Respiratory 22 20 16 Rate Blood Pressure 135/86 H 147/103 H 137/85 H O2 Saturation 95 100 100 Oxygen O2 Source Room air - Labs Labs: Laboratory Tests 10/04/20 10/04/20 10/04/20 10:13 11:20 11:20 WBC 7.8 RBC 3.90 L Hgb 12.2 Hct 37.2 MCV 95.4 MCH 31.3 H MCHC 32.8 RDW 12.5 Plt Count 197 MPV 10.3 Neut # (Auto) 5.8 Lymph # (Auto) 1.1 L [place] # (Auto) 0.5 Eos # (Auto) 0.2 Baso # (Auto) 0.0 Absolute Nucleated RBC 0.00 Nucleated RBC % 0.0 Sodium 140 Potassium 4.2 Chloride 106 Carbon Dioxide 24 Anion Gap 10.0 BUN 13 Creatinine 0.8 Estimated GFR (MDRD) 85 L Glucose 90 Calcium 8.7 Total Bilirubin 0.7 AST 22 ALT 28 Alkaline Phosphatase 61 Total Protein 6.4 L Albumin 3.5 Globulin 2.9 Albumin/Globulin Ratio 1.2 Lipase 25 Urine Color YELLOW Urine Clarity HAZY Urine pH 5.5 Ur Specific [place] >=1.030 H Urine Protein NEGATIVE Urine Glucose (UA) NEGATIVE Urine Ketones NEGATIVE Urine Occult Blood SMALL H Urine Nitrite NEGATIVE Urine Bilirubin NEGATIVE Urine Urobilinogen 0.2 (NORMAL) Ur Leukocyte Esterase NEGATIVE Urine RBC 0-5 Urine WBC 0-3 Ur Squamous Epith Cells MANY Squamous H Urine Bacteria Few Ur Microscopic Review INDICATED Urine Culture Comments NOT INDICATED PD MEDICAL DECISION MAKING - ED course ED course: d/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 Abdominal pain, nausea vomiting resolved status post symptomatic management. Discussed with patient that she will follow-up in clinic. Strict return precautions given. Extensive education given about symptom management. Departure - Departure Disposition: Home, Self Care Clinical Impression: Nausea and vomiting, Abdominal pain Condition: Good Instructions: Diet Clear Liquid Dc, ED Nausea Vomiting Comments: You have been seen in the emergency department for nausea and vomiting. Try to eat light foods and drink small sips of water at home. Take Zofran as needed for nausea and continue your pain regimen. Follow-up with your ob on Monday. Discharge Date/Time: 10/04/20 12:44
[2020-10-04 11:26] LABS: BASOPHILS % (AUTO) 0.4 %; EOSINOPHILS # (AUTO) 0.2 10^3/uL (0.0-0.7); HGB - HEMOGLOBIN 12.2 g/dL (12.0-16.0); LYMPHOCYTES # (AUTO) 1.1 10^3/uL (1.5-3.5); LYMPHOCYTES % (AUTO) 14.5 %; MEAN CORPUSCULAR HEMOGLOBIN 31.3 pg (27.0-31.0); MEAN CORPUSCULAR HGB CONC 32.8 g/dL (32.0-36.0); MEAN CORPUSCULAR VOLUME 95.4 fL (81.0-99.0); MEAN PLATELET VOLUME 10.3 fL (7.9-10.8); MONOCYTES # (AUTO) 0.5 10^3/uL (0.0-1.0); MONOCYTES % (AUTO) 6.7 %; NEUTROPHILS # (AUTO) 5.8 10^3/uL (1.5-6.6); NEUTROPHILS % (AUTO) 75.1 %; PLT - PLATELET COUNT 197 10^3/uL (130-450); RED CELL DISTRIBUTION WIDTH 12.5 % (12.0-15.0); WHITE BLOOD COUNT 7.8 x10^3/uL (4.8-10.8)
[2020-10-04 11:29] LABS: BILIRUBIN,URINE NEGATIVE (NEGATIVE); CLARITY,URINE HAZY (CLEAR); GLUCOSE, URINE (UA) NEGATIVE (NEGATIVE); KETONES,URINE (UA) NEGATIVE (NEGATIVE); LEUKOCYTE ESTERASE, URINE NEGATIVE (NEGATIVE); NITRITE,URINE NEGATIVE (NEGATIVE); OCCULT BLOOD,URINE SMALL (NEGATIVE); PH,URINE 5.5 PH (5.0-7.5); PROTEIN,URINE NEGATIVE (NEGATIVE); UROBILINOGEN,URINE 0.2 (NORMAL) E.U./dL (NORMAL)
[2020-10-04 11:40] LABS: BACTERIA,URINE Few /HPF (None Seen); RBC,URINE 0-5 /HPF (0-5); SQUAMOUS EPITHELIAL CELL,UR MANY Squamous (<= Few)
[2020-10-04 11:43] LABS: ALBUMIN 3.5 g/dL (3.2-5.5); ALBUMIN/GLOBULIN RATIO 1.2 (1.0-2.2); BILIRUBIN,TOTAL 0.7 mg/dL (0.2-1.0); CALCIUM 8.7 mg/dL (8.5-10.3); CREATININE 0.8 mg/dL (0.4-1.0); TOTAL PROTEIN 6.4 g/dL (6.7-8.2)
[2020-10-04 12:45] VITALS: BP 137/85
== END 2020-10-04 12:44 | disposition home or self-care (01) ==
LOC: ED 09:37
DX: R11.2 Nausea with vomiting, unspecified (principal); R51.9 Headache, unspecified; Z90.710 Acquired absence of both cervix and uterus; I10 Essential (primary) hypertension
CPT/HCPCS: 36415; 80053; 81001; 83690; 85025; 96361; 96374; 99283; 99284; J7120; 81003; 87086

== ENCOUNTER 2020-12-27 13:20 | Outpatient (CLI) | payer MEDICAID ==
[2020-12-27 16:43] LABS: RAPID STREP SCREEN Negative (Negative)
== END 2020-12-27 23:59 | disposition home or self-care (01) ==
LOC: LAB.R 13:20
PROVIDERS: ATTEND Nurse Practitioner
DX: J02.0 Streptococcal pharyngitis (principal); Z20.822 Contact with and (suspected) exposure to COVID-19
CPT/HCPCS: 87070; 87275; 87276; 87430

== ENCOUNTER 2020-12-28 10:21 | Outpatient (CLI) | payer MEDICAID | END 2020-12-28 10:22 | disposition home or self-care (01) | LOC: LAB 10:21 | PROVIDERS: ATTEND Nurse Practitioner | DX: J02.0 Streptococcal pharyngitis (principal) | CPT/HCPCS: 87070 ==

== ENCOUNTER 2021-01-19 10:01 | Outpatient (CLI) | payer MEDICAID | END 2021-01-19 23:59 | disposition home or self-care (01) | LOC: LAB.N 10:01 | PROVIDERS: ATTEND Family Medicine | DX: R39.9 Unspecified symptoms and signs involving the genitourinary system (principal) | CPT/HCPCS: 87077; 87086 ==

== ENCOUNTER 2021-10-14 15:28 | Emergency (ER) | payer MEDICAID ==
[2021-10-14 15:39] VITALS: BP 132/84
--- NOTE | 2021-10-14 15:53 | ED Physician Documentation ---
PD HPI OPHTHO - Stated complaint Stated Complaint: RT BELOW EYELID INJ - Chief complaint Chief Complaint: Heent - History obtained from History obtained from: Patient - History of Present Illness Timing - onset: How many hours ago (1), Today Timing - duration: Hours (1) Timing - details: Abrupt onset, Still present Location: Right Associated symptoms: Redness, Tearing, FB sensation. No: Discharge, Photophobia, Double vision, Loss of vision Contributing factors: Blunt trauma (she states she ran into the metal leg end of [employer], injury to right eye area. She states it struck eye/eyelid/periorbital area. Her contact popped out so vision is blurred c/w no contacts in. blood appearance lateral eye. 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: Ovarian cysts : Chronic bladder infection HEENT: Other Psych: Anxiety Musculoskeletal: None Derm: None - Past Surgical History Past Surgical History: Yes /COST CONTROL SPECIALIST: Tubal ligation, Other HEENT: Tonsil/Adenoidectomy - Present Medications Home Medications: Ambulatory Orders Medication Instructions Recorded Confirmed Albuterol Sulfate [Proair Hfa 1 puffs INH QID PRN 12/31/19 10/04/20 Inhaler] Spironolactone [Aldactone] 50 mg PO DAILY 09/22/20 10/04/20 Acetaminophen [Tylenol] 650 mg PO Q6H PRN #90 tablet 09/30/20 10/04/20 Docusate Sodium 100Mg Capsule 100 - 200 mg PO BID PRN #60 capsule 09/30/20 10/04/20 [Colace 100Mg Capsule] Ibuprofen [Motrin] 600 mg PO Q6H PRN #90 tab 09/30/20 10/04/20 oxyCODONE [Roxicodone] 5 mg PO Q4H PRN #24 tablet 09/30/20 10/04/20 Ondansetron Odt [Zofran Odt] 4 mg TL Q4H PRN #30 tablet 10/02/20 10/04/20 - Allergies Allergies/Adverse Reactions: Allergies Allergy/AdvReac Type Severity Reaction Status Date / Time amoxicillin [Amoxicillin] Allergy Mild Rash Verified 10/14/21 15:39 - Social History Does the pt smoke?: No Smoking Status: Never smoker Does the pt drink ETOH?: No Does the pt have substance abuse?: No - Immunizations Immunizations are current?: Yes Immunizations: TDAP current <10years - POLST Patient has POLST: No PD ED PE NORMAL - Vitals Vital signs reviewed: Yes - General General: Alert and 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, No acute distress, Well developed/nourished - HEENT HEENT: PERRL, EOMI (no pain nor diplopia with EOMs. There is swelling and early ecchymosis lateral right lower lid with small 2-3 mm laceration without FB/bleeding outer eyelid. Obvious subconjunctival hematoma from 6-10 oclock area. No external bleeding. Anterior and posterior chambers without bleeding. No dye uptake.) Results - Vitals Vitals: Vital Signs - 24 hr 10/14/21 15:36 Heart Rate 80 Respiratory 14 Rate Blood Pressure 132/84 H O2 Saturation 98 Oxygen O2 Source Room air PD MEDICAL DECISION MAKING - ED course Complexity details: considered differential (subconjunctival hematoma without signs of corneal tear/abrasion. Small outer eyelid lac. No symptoms to suggest orbital fracture/ no need for imaging. ), d/w patient Departure - Departure Disposition: 01 Home, Self Care Clinical Impression: Periorbital contusion Qualifiers: Encounter type: initial encounter Laterality: right Qualified Code(s): S05.11XA - Contusion of eyeball and orbital tissues, right eye, initial encounter Subconjunctival hemorrhage Qualifiers: Laterality: right Qualified Code(s): H11.31 - Conjunctival hemorrhage, right eye Eyelid abrasion Qualifiers: Encounter type: initial encounter Laterality: right Qualified Code(s): S00.211A - Abrasion of right eyelid and periocular area, initial encounter Condition: Stable Record reviewed to determine appropriate education?: Yes Instructions: Black Eye, ED Eye Injury Subconj Hemorrhage Comments: No contacts in the right eye until this is resolved. The blood under the conjunctivoshould resolve over several days to week or so. You will likely develop some bruising around the eye and the lower lid. I do not see any signs of abrasion or puncture in the surface of the eye and no signs of bleeding in the front or back chambers. It looks to be just the disruption of the blood vessel under the surface of the eye causing the blood smear. Tylenol or ibuprofen as needed for pains. Ice or cool towels periodically to help with swelling. Discharge Date/Time: 10/14/21 16:45
[2021-10-14] MEDS ORDERED: ACETAMINOPHEN 325 MG TABLET PO STA (16:21)
== END 2021-10-14 16:45 | disposition home or self-care (01) ==
LOC: ED 15:28
DX: S05.11XA Contusion of eyeball and orbital tissues, right eye, initial encounter (principal); W22.8XXA Striking against or struck by other objects, initial encounter; H11.31 Conjunctival hemorrhage, right eye; I10 Essential (primary) hypertension
CPT/HCPCS: 99282; A9270

== ENCOUNTER 2021-11-18 08:00 | Outpatient (CLI) | payer MEDICAID | END 2021-11-18 23:59 | LOC: LAB.N 08:00 | PROVIDERS: ATTEND Physician Assistant | DX: R05.9 Cough, unspecified (principal); R51.9 Headache, unspecified; Z20.822 Contact with and (suspected) exposure to COVID-19 ==

== ENCOUNTER 2022-03-30 10:47 | Outpatient (CLI) | payer MEDICAID ==
--- NOTE | 2022-03-30 16:20 | Ultrasound Report ---
PROCEDURE: Pelvic w/Transvaginal INDICATIONS: RIGHT SIDE PELVIC PAIN TECHNIQUE: Real-time scanning was performed of the pelvic organs, with image documentation. Additional endovagi nal scanning was necessary due to incomplete visualization of the adnexal and endometrial structures by transabdominal scanning. COMPARISON: Pelvic ultrasound at 07/17/2020. FINDINGS: Uterus: Surgically absent. Ovaries: Right ovary measures 2.9 x 2.5 x 2.5 cm, volume of 10 cc. Seen transabdominally. Left ovary is surgically absent. The appendix is not seen. No free fluid is seen. IMPRESSION: Post hysterectomy. Left ovary is not seen. Source for pelvic pain is not identified. The appendix is not seen. No free fluid is seen. If clinically indicated consider CT abdomen pelvis with IV contrast for further evaluation. Reviewed by: Vinay Lewis MD on 03/30/2022 4:19 PM PDT Approved by: Vinay Lewis MD on 03/30/2022 4:19 PM PDT Station ID: [id number]
== END 2022-03-30 10:48 | disposition home or self-care (01) ==
LOC: DI 10:47
PROVIDERS: ATTEND Nurse Practitioner Family
DX: R10.2 Pelvic and perineal pain (principal); Z90.710 Acquired absence of both cervix and uterus

== ENCOUNTER 2022-05-19 10:53 | Emergency (ER) | payer MEDICAID ==
[2022-05-19] MEDS ORDERED: LIDOCAINE PATCH 5% TOP STA (11:56)
[2022-05-19] MEDS ORDERED: KETOROLAC 30 MG/ML VIAL IM STA (11:56)
--- NOTE | 2022-05-19 12:34 | XRAY Report ---
PROCEDURE: Chest 2 View X-Ray INDICATIONS: L SIDED RIB PAIN TECHNIQUE: 2 view(s) of the chest. COMPARISON: 12/31/2019 FINDINGS: Surgical changes and devices: None. Lungs and pleura: No pleural effusions or pneumothorax. Lungs are clear. Mediastinum: Mediastinal contours are normal. Heart size is normal. Bones and chest wall: No suspicious bony abnormalities. Soft tissues appear unremarkable. IMPRESSION: No acute cardiothoracic abnormality. No displaced rib fracture identified. Reviewed by: Cheo Lopez MD on 05/19/2022 12:33 PM PDT Approved by: Cheo Lopez MD on 05/19/2022 12:33 PM PDT Station ID: [id number]
--- NOTE | 2022-05-19 12:56 | ED Physician Documentation ---
History of Present Illness - Stated complaint Stated Complaint: L SIDED PX - Chief complaint Chief Complaint: Resp - History obtained from History obtained from: Patient - History of Present Illness Timing: Today - Additonal information Additional information: 31-year-old female with no reported past medical history presents for 1 day of left-sided chest wall pain and rib pain. Patient states that yesterday she was playing with her children, she does not remember injuring herself or doing any abnormal lifting movements. She states that when she woke up this morning she noticed intermittent, sharp, nonradiating rib pain in her lower left chest. Worse with deep inspiration, palpation, and movement. This is never happened before. Patient denies OCP use, recent surgeries or immobilizations, history of coagulopathy. No medications taken at home for symptoms. Review of Systems Ten Systems: 10 systems reviewed and negative Constitutional: denies: Fever, Chills Ears: denies: Loss of hearing, Ear pain Cardiac: reports: Chest pain / pressure. denies: Palpitations, Pedal edema, Calf pain Respiratory: denies: Dyspnea, Cough, Hemoptysis GI: denies: Abdominal Pain, Abdominal Swelling, Nausea, Vomiting, Constipation, Diarrhea : denies: Dysuria, Frequency, Hesitancy Skin: denies: Rash, Lesions Musculoskeletal: denies: Neck pain, Back pain Neurologic: denies: Generalized weakness, Focal weakness PD PAST MEDICAL HISTORY - Past Medical History Past Medical History: Yes Cardiovascular: Hypertension, Other Respiratory: Asthma Neuro: None, Headaches Endocrine/Autoimmune: None, Other GI: None PSYCHOLOGIST: Ovarian cysts : Chronic bladder infection HEENT: Other Psych: Anxiety Musculoskeletal: None Derm: None - Past Surgical History Past Surgical History: Yes /PSYCHOLOGIST: Tubal ligation, Other HEENT: Tonsil/Adenoidectomy - Present Medications Home Medications: Ambulatory Orders Medication Instructions Recorded Confirmed Albuterol Sulfate [Proair Hfa 1 puffs INH QID PRN 12/31/19 10/04/20 Inhaler] Spironolactone [Aldactone] 50 mg PO DAILY 09/22/20 10/04/20 Acetaminophen [Tylenol] 650 mg PO Q6H PRN #90 tablet 09/30/20 10/04/20 Docusate Sodium 100Mg Capsule 100 - 200 mg PO BID PRN #60 capsule 09/30/20 10/04/20 [Colace 100Mg Capsule] Ibuprofen [Motrin] 600 mg PO Q6H PRN #90 tab 09/30/20 10/04/20 oxyCODONE [Roxicodone] 5 mg PO Q4H PRN #24 tablet 09/30/20 10/04/20 Ondansetron Odt [Zofran Odt] 4 mg TL Q4H PRN #30 tablet 10/02/20 10/04/20 methocarbamoL [Robaxin] 500 mg PO Q6H #20 tablet 05/19/22 - Allergies Allergies/Adverse Reactions: Allergies Allergy/AdvReac Type Severity Reaction Status Date / Time amoxicillin [Amoxicillin] Allergy Mild Rash Verified 05/19/22 11:10 - Social History Does the pt smoke?: No Smoking Status: Never smoker Does the pt drink ETOH?: No Does the pt have substance abuse?: No - Immunizations Immunizations are current?: Yes Immunizations: TDAP current <10years - POLST Patient has POLST: No PD ED PE NORMAL - Vitals Vital signs reviewed: Yes - General General: Alert and 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, No acute distress, Well developed/nourished - HEENT HEENT: Atraumatic, PERRL, EOMI, Ears normal, Moist mucous membranes - Neck Neck: Supple, no meningeal sign, No bony TTP, C-Spine cleared by NEXUS criteria - Cardiac Cardiac: RRR, No murmur, Strong equal pulses - Respiratory Respiratory: No respiratory distress, Clear bilaterally, Other (L chest wall TTP without crepitus, no deformity) - Abdomen Abdomen: Soft, Non tender, Non distended - Back Back: No CVA TTP, No spinal TTP - Derm Derm: Normal color, No rash - Extremities Extremities: No deformity, No tenderness to palpate, Normal ROM s pain, No edema, No calf tenderness / cord - Neuro Neuro: Alert and 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, 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 PERC negative. X-rays negative for acute findings. Patient reported marked improvement with lidocaine patch and anti- inflammatories. Likely musculoskeletal, patient counseled to alternate anti- inflammatories and Tylenol as needed for symptoms. Also given short course of muscle relaxers. Gentle stretching exercises counseled. Patient discharged home in stable condition. Departure - Departure Disposition: 01 Home, Self Care Clinical Impression: Chest wall pain Condition: Stable Instructions: ED Chest Pain Costochondritis, ED Strain Chest Wall Prescriptions: methocarbamoL [Robaxin] 500 mg PO Q6H #20 tablet Comments: TAKE TYLENOL AND MOTRIN NEEDED FOR PAIN. GET PLENTY OF REST. APPLY LIDOCAINE PATCH NEEDED FOR PAIN RELIEF. Discharge Date/Time: 05/19/22 13:05
[2022-05-19 13:05] VITALS: BP 137/100
== END 2022-05-19 13:05 | disposition home or self-care (01) ==
LOC: ED 10:53
DX: R07.89 Other chest pain (principal); I10 Essential (primary) hypertension
CPT/HCPCS: 71046; 93005; 96372; 99282; 99284; A9270

== ENCOUNTER 2022-05-31 12:54 | Outpatient (CLI) | payer MEDICAID ==
--- NOTE | 2022-06-01 09:51 | Ultrasound Report ---
LIMITED ULTRASOUND OF LEFT BREAST: 05/31/2022 CLINICAL: Focal left breast pain. Comparison is made to exam dated: 05/31/2022 mammogram - [facility]. Color flow and real-time ultrasound of the left breast retroareolar were performed. Conklin scale image s of the real-time examination were reviewed. No significant abnormalities were seen sonographically in the left breast in the region of pain. IMPRESSION: NEGATIVE There is no sonographic evidence of malignancy. Exam findings were conveyed to the patient. Patient is advised to monitor for significant change. Cli nical follow-up as needed. Return to screening mammogram recommended, usually to commence at age 40. This exam was interpreted at Station ID: [id number]. Electronically Signed By: Vinay Lewis M.D. slc/:05/31/2022 14:45:48 Ultrasound BI-RADS: 1 Negative BI-RADS CATEGORY: (1) - 1 Unspecified - other recall n/a LATERALITY: (B)
--- NOTE | 2022-06-01 09:51 | Mammography Report ---
BILATERAL DIGITAL DIAGNOSTIC MAMMOGRAM 3D/2D: 05/31/2022 CLINICAL: Left breast pain behind nipple for 6 months. Baseline exam. No prior exams were available for comparison. The tissue of both breasts is heterogeneously dense. T his may lower the sensitivity of mammography. No significant masses, calcifications, or other findings are seen in either breast. IMPRESSION: INCOMPLETE: NEEDS ADDITIONAL IMAGING EVALUATION No mammographic evidence of malignancy. A targeted ultrasound is recommended and will immediately follow. Based on the Tyrer Cuzick model (a risk assessment model) the patients lifetime risk is 9.9% and her 10 year risk is 0.4%. According to the ACR, ACS, and NCCN guidelines, an annual breast MRI exam sagar g with mammogram is recommended if the patients lifetime risk is 20% or greater. This exam was interpreted at Station ID: [id number]. NOTE: For mammograms, a report in lay terms will be sent to the patient. Approximately 15% of breast malignancies will not be visualized mammographically. In the management of a palpable breast mass, a negative mammogram must not discourage biopsy of a clinically suspicious lesion. Electronically Signed By: Vinay Lewis M.D. slc/:05/31/2022 14:44:12 ACR BI-RADS Category 0: Incomplete 3340F PARENCHYMAL PATTERN: (D) - The breast(s) demonstrate(s) heterogeneously dense fibroglandular parenchy ma. BI-RADS CATEGORY: (0) - 0 Ultrasound [id number] Immediate follow-up LATERALITY: (B)
== END 2022-05-31 12:55 | disposition home or self-care (01) ==
LOC: DI 12:54
PROVIDERS: ATTEND Nurse Practitioner
DX: N64.4 Mastodynia (principal)

== ENCOUNTER 2022-09-16 14:39 | Emergency (ER) | payer MEDICAID ==
[2022-09-16 15:16] VITALS: BP 140/100
--- NOTE | 2022-09-16 16:36 | ED Physician Documentation ---
PD HPI HEENT - Stated complaint Stated Complaint: BOTH EARS PX - Chief complaint Chief Complaint: Heent - History obtained from History obtained from: Patient - History of Present Illness Timing - onset: Yesterday (has had sinus pressure and some drainage for few days. Yesterday with feeling of pressure in ears. Had a "pop" feeling in right ear today, and a sensation of fluid in ear canal but no moisture came out. Decreased hearing.) Timing - duration: Days (1) Timing - details: Abrupt onset, Still present Location: Right ear, Left ear, Sinuses (pressure feeling) Associated symptoms: Rhinorrhea. No: Fever, Facial swelling Similar symptoms before: Has not had sx before Recently seen: Not recently seen Review of Systems Constitutional: denies: Fever, Chills Ears: reports: Loss of hearing, Ear pain. 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: Ovarian cysts : Chronic bladder infection HEENT: Other Psych: Anxiety Musculoskeletal: None Derm: None - Past Surgical History Past Surgical History: Yes /CHIEF LEGAL OFFICER: Tubal ligation, Other HEENT: Tonsil/Adenoidectomy - Present Medications Home Medications: Ambulatory Orders Medication Instructions Recorded Confirmed Albuterol Sulfate [Proair Hfa 1 puffs INH QID PRN 12/31/19 10/04/20 Inhaler] Spironolactone [Aldactone] 50 mg PO DAILY 09/22/20 10/04/20 Acetaminophen [Tylenol] 650 mg PO Q6H PRN #90 tablet 09/30/20 10/04/20 Docusate Sodium 100Mg Capsule 100 - 200 mg PO BID PRN #60 capsule 09/30/20 10/04/20 [Colace 100Mg Capsule] Ibuprofen [Motrin] 600 mg PO Q6H PRN #90 tab 09/30/20 10/04/20 oxyCODONE [Roxicodone] 5 mg PO Q4H PRN #24 tablet 09/30/20 10/04/20 Ondansetron Odt [Zofran Odt] 4 mg TL Q4H PRN #30 tablet 10/02/20 10/04/20 methocarbamoL [Robaxin] 500 mg PO Q6H #20 tablet 05/19/22 Cetirizine [ZyrTEC] 10 mg PO BID #15 tablet 09/16/22 cefUROXime axetiL [Ceftin] 250 mg PO Q12H #10 tablet 09/16/22 dexAMETHasone [Decadron] 4 mg PO DAILY #5 tablet 09/16/22 - Allergies Allergies/Adverse Reactions: Allergies Allergy/AdvReac Type Severity Reaction Status Date / Time amoxicillin [Amoxicillin] Allergy Mild Rash Verified 09/16/22 15:16 - Social History Does the pt smoke?: No Smoking Status: Never smoker Does the pt drink ETOH?: No Does the pt have substance abuse?: No - Immunizations Immunizations are current?: Yes Immunizations: TDAP current <10years - POLST Patient has POLST: No PD ED PE NORMAL - Vitals Vital signs reviewed: Yes - General General: Alert and 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, No acute distress, Well developed/nourished - HEENT HEENT: Pharynx benign, Other (both TMs with fullness and fluid behind, some redness on left, notable redness right. Canal appears normal. No noted fluid in canal. No visible perforation of TM. ) - Neck Neck: Supple, no meningeal sign, No adenopathy - Cardiac Cardiac: RRR, No murmur - Respiratory Respiratory: Clear bilaterally Results - Vitals Vitals: Vital Signs - 24 hr 09/16/22 15:13 Temperature 36.8 C Heart Rate 66 Respiratory 16 Rate Blood Pressure 140/100 H O2 Saturation 99 Oxygen O2 Source Room air PD MEDICAL DECISION MAKING - ED course Complexity details: considered differential (having sinus pressure and both ears hurting. c/w congestion and likely underlying viral. TMs red and bulging particularly right, so could be some bacterial component as well. ), d/w patient Departure - Departure Disposition: 01 Home, Self Care Clinical Impression: Sinus pressure Otitis media Qualifiers: Otitis media type: suppurative Chronicity: acute Laterality: right Recurrence: non-recurrent Spontaneous tympanic membrane rupture: without spontaneous rupture Qualified Code(s): H66.001 - Acute suppurative otitis media without spontaneous rupture of ear drum, right ear Condition: Stable Record reviewed to determine appropriate education?: Yes Instructions: ED Otitis Media Acute Adult Follow-Up: Brisa Joya ARNP [Primary Care Provider] - Prescriptions: cefUROXime axetiL [Ceftin] 250 mg PO Q12H #10 tablet dexAMETHasone [Decadron] 4 mg PO DAILY #5 tablet Cetirizine [ZyrTEC] 10 mg PO BID #15 tablet Comments: Presume there is some sinus pressure and congestion with improper drainage due to the viral illness. However that is caused the back pressure into the eustachian tube and a middle ear infection particularly on the right. Cetirizine antihistamine twice daily for the next week. Also Decadron steroid daily for a few more days. This will help with the congestion and inflammation. Cefuroxime antibiotic twice daily for 5 days for the infection. Add Tylenol every 4-6 hours if needed for pain. Recheck if not improving well over the next several days. Prescription was sent to [facility] pharmacy. Discharge Date/Time: 09/16/22 17:33
[2022-09-16] MEDS ORDERED: DEXAMETHASONE 10 MG/ML VIAL PO STA (16:59)
[2022-09-16] MEDS ORDERED: CHERRY SYRUP 10 ML UDC PO ONE (16:59)
[2022-09-16] MEDS ORDERED: CETIRIZINE 10 MG TABLET PO STA (16:59)
== END 2022-09-16 17:33 | disposition home or self-care (01) ==
LOC: ED 14:39
DX: J34.89 Other specified disorders of nose and nasal sinuses (principal); H66.001 Acute suppurative otitis media without spontaneous rupture of ear drum, right ear
CPT/HCPCS: 99282; 99283; A9270

== ENCOUNTER 2023-06-20 09:30 | Outpatient (CLI) | payer MEDICAID ==
[2023-06-20 17:58] LABS: BASOPHILS # (AUTO) 0.1 10^3/uL (0.0-0.1); BASOPHILS % (AUTO) 0.8 %; EOSINOPHILS % (AUTO) 0.6 %; HCT - HEMATOCRIT 43.7 % (37.0-47.0); HGB - HEMOGLOBIN 13.9 g/dL (12.0-16.0); LYMPHOCYTES # (AUTO) 1.3 10^3/uL (1.5-3.5); LYMPHOCYTES % (AUTO) 21.3 %; MEAN CORPUSCULAR HEMOGLOBIN 30.3 pg (27.0-31.0); MEAN CORPUSCULAR HGB CONC 31.8 g/dL (32.0-36.0); MEAN CORPUSCULAR VOLUME 95.2 fL (81.0-99.0); MEAN PLATELET VOLUME 11.3 fL (7.9-10.8); MONOCYTES # (AUTO) 0.3 10^3/uL (0.0-1.0); MONOCYTES % (AUTO) 5.1 %; NEUTROPHILS # (AUTO) 4.5 10^3/uL (1.5-6.6); PLT - PLATELET COUNT 259 10^3/uL (130-450); RED BLOOD COUNT 4.59 10^6/uL (4.20-5.40); RED CELL DISTRIBUTION WIDTH 12.4 % (12.0-15.0); WHITE BLOOD COUNT 6.3 x10^3/uL (4.8-10.8)
[2023-06-20 18:04] LABS: ALBUMIN 4.2 g/dL (3.2-5.5); ALBUMIN/GLOBULIN RATIO 1.6 (1.0-2.2); BILIRUBIN,TOTAL 0.6 mg/dL (0.2-1.0); CALCIUM 9.3 mg/dL (8.5-10.3); CREATININE 0.8 mg/dL (0.6-1.3); TOTAL PROTEIN 6.8 g/dL (6.4-8.9)
== END 2023-06-20 09:45 | disposition home or self-care (01) ==
LOC: LAB.N 09:30
PROVIDERS: ATTEND Specialist
DX: R10.13 Epigastric pain (principal)
CPT/HCPCS: 36415; 80053; 82150; 83690; 85025

== ENCOUNTER 2023-10-09 18:23 | Emergency (ER) | payer MEDICAID ==
[2023-10-09] MEDS ORDERED: oxyCODONE/ACET 5/325 Prepack 4 PO STA (18:49)
[2023-10-09] MEDS ORDERED: HYDROmorphone 1 MG/ML CARPUJECT IM STA (18:49)
[2023-10-09] MEDS ORDERED: LIDOCAINE 1% 2 ML VIAL MC ONE (18:49)
[2023-10-09] MEDS ORDERED: metroNIDAZOLE 250 MG TABLET PO STA (18:49)
[2023-10-09] MEDS ORDERED: cefTRIAXone 1 GM VIAL IM STA (18:49)
--- NOTE | 2023-10-09 18:52 | ED Physician Documentation ---
PD HPI HEENT - Stated complaint Stated Complaint: MOUTH PX - Chief complaint Chief Complaint: Heent - History obtained from History obtained from: Patient - Additional information Additional information: She had a wisdom tooth removal 5 days ago. She was doing well postop, but starting today has had much more pain and trismus. She denies fevers. No increase in facial swelling. She is on clindamycin postoperatively but a dose of only 150 mg 4 times daily. 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: Ovarian cysts : Chronic bladder infection HEENT: Other Psych: Anxiety Musculoskeletal: None Derm: None - Past Surgical History Past Surgical History: Yes /COMMUNITY ADMINISTRATOR: Tubal ligation, Other HEENT: Tonsil/Adenoidectomy - Present Medications Home Medications: Ambulatory Orders Medication Instructions Recorded Confirmed Albuterol Sulfate [Proair Hfa 1 puffs INH QID PRN 12/31/19 10/04/20 Inhaler] Spironolactone [Aldactone] 50 mg PO DAILY 09/22/20 10/04/20 Acetaminophen [Tylenol] 650 mg PO Q6H PRN #90 tablet 09/30/20 10/04/20 Docusate Sodium 100Mg Capsule 100 - 200 mg PO BID PRN #60 capsule 09/30/20 10/04/20 [Colace 100Mg Capsule] Ibuprofen [Motrin] 600 mg PO Q6H PRN #90 tab 09/30/20 10/04/20 oxyCODONE [Roxicodone] 5 mg PO Q4H PRN #24 tablet 09/30/20 10/04/20 Ondansetron Odt [Zofran Odt] 4 mg TL Q4H PRN #30 tablet 10/02/20 10/04/20 methocarbamoL [Robaxin] 500 mg PO Q6H #20 tablet 05/19/22 Cetirizine [ZyrTEC] 10 mg PO BID #15 tablet 09/16/22 cefuroxime axetiL [Ceftin] 250 mg PO Q12H #10 tablet 09/16/22 dexAMETHasone [Decadron] 4 mg PO DAILY #5 tablet 09/16/22 Cefdinir 300 mg PO BID #20 cap 10/09/23 Oxycodone HCl/Acetaminophen 1 - 2 each PO Q6H PRN #14 tablet 10/09/23 [Percocet 5-325 mg Tablet] metroNIDAZOLE [Flagyl] 500 mg PO TID 10 Days #30 tablet 10/09/23 - Allergies Allergies/Adverse Reactions: Allergies Allergy/AdvReac Type Severity Reaction Status Date / Time amoxicillin [Amoxicillin] Allergy Mild Rash Verified 09/16/22 15:16 - Social History Does the pt smoke?: No Smoking Status: Never smoker Does the pt drink ETOH?: No Does the pt have substance abuse?: No - Immunizations Immunizations are current?: Yes Immunizations: TDAP current <10years - POLST Patient has POLST: No PD ED PE NORMAL - Vitals Vital signs reviewed: Yes - General General: Alert and 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, No acute distress - HEENT HEENT: Other (Trismus to about 2 and half centimeters between the incisors. Quite tender in the area of the left mandibular wisdom tooth without obvious swelling or infection but presume that is the case related to the timing of her symptoms.) - Neck Neck: Supple, no meningeal sign, No bony TTP - Neuro Neuro: Alert and 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, Normal speech Results - Vitals Vitals: Vital Signs - 24 hr 10/09/23 18:35 Temperature 37.2 C Heart Rate 110 H Respiratory 18 Rate Blood Pressure 153/109 H O2 Saturation 100 Oxygen O2 Source Room air PD Medical Decision Making - ED course ED course: She presents with worse pain and presumed postop infection after wisdom tooth removal. She is given IM Rocephin and p.o. Flagyl noting amoxicillin allergy. She was on a lower dose of clindamycin at home. Departure - Departure Disposition: 01 Home, Self Care Clinical Impression: [place] teeth extracted Qualifiers: Tooth loss class: unspecified tooth loss Qualified Code(s): K08.409 - Partial loss of teeth, unspecified cause, unspecified class Condition: Good Record reviewed to determine appropriate education?: Yes Instructions: ED Tooth Pain Prescriptions: Cefdinir 300 mg PO BID #20 cap metroNIDAZOLE [Flagyl] 500 mg PO TID 10 Days #30 tablet Oxycodone HCl/Acetaminophen [Percocet 5-325 mg Tablet] 1 - 2 each PO Q6H PRN #14 tablet PRN Reason: pain Comments: [facility] [place]. Follow-u p with your dental surgeon, call tomorrow for an appointment. Let them know you are having troubles. Return if worse. Do not drink alcohol while on the antibiotics, it would make you quite ill. I am prescribing a short course of narcotic pain medication for you. These are potentially dangerous and addictive medications that should be used carefully. These medications may constipate you. Take an [id number] stool softener (docusate) twice daily with plenty of water while taking these medications. If you go 24 hours without a bowel movement, take [id number] miralax, per package instructions. Do not drink or drive while taking these medications. If you received narcotic or sedating medications while in the emergency department, do not drive for 24 hours. Store this medication in a safe, secure place and out of reach of children. It is a violation of federal law to give or sell this medication to another person or to use in a manner other than prescribed. The ED will not refill narcotic prescriptions, including prescriptions lost or stolen. To dispose of unwanted medications: 1. [facility] provides a drop box for medication in pill form only (no liquids) 8:00 am to 4:30 p.m. Monday-Monday in the lobby of the [facility] [place], [address] Empty pills into ziplock bag before disposal. Call [phone] for information. 2.[employer] is a free service available to all [facility] residents. Go to [email or web address] Note that many narcotic pain relievers also contain Tylenol/acetaminophen. Ple ase ensure that your total dose of acetaminophen from all sources does not exceed 3 g (3000 mg) per day. Forms: PCP List
[2023-10-09 19:26] VITALS: BP 148/98; O2SAT 95
== END 2023-10-09 19:17 | disposition home or self-care (01) ==
LOC: ED 18:23
DX: K08.409 Partial loss of teeth, unspecified cause, unspecified class (principal); I10 Essential (primary) hypertension
CPT/HCPCS: 96372; 99282; 99283; A9270; J1170

== ENCOUNTER 2024-07-16 17:26 | Emergency (ER) | payer MEDICAID ==
[2024-07-16 17:40] VITALS: BP 156/101; O2SAT 96
[2024-07-16 18:00] LABS: BILIRUBIN,URINE NEGATIVE (NEGATIVE); GLUCOSE, URINE (UA) NEGATIVE (NEGATIVE); KETONES,URINE (UA) NEGATIVE (NEGATIVE); LEUKOCYTE ESTERASE, URINE NEGATIVE (NEGATIVE); NITRITE,URINE NEGATIVE (NEGATIVE); OCCULT BLOOD,URINE NEGATIVE (NEGATIVE); PROTEIN,URINE NEGATIVE (NEGATIVE); UROBILINOGEN,URINE 0.2 (NORMAL) E.U./dL (NORMAL)
[2024-07-16 18:02] LABS: CLARITY,URINE HAZY (CLEAR); HCG UR QUAL NEGATIVE
[2024-07-16 18:12] LABS: BACTERIA,URINE Rare /HPF (None Seen); RBC,URINE 0-5 /HPF (0-5); SQUAMOUS EPITHELIAL CELL,UR MOD Squamous (<= Few); WBC,URINE 0-3 /HPF (0-5)
--- NOTE | 2024-07-16 18:45 | ED Physician Documentation ---
PD HPI URI - Stated complaint Stated Complaint: THROAT PX - Chief complaint Chief Complaint: General - History obtained from History obtained from: Patient - History of Present Illness Timing - onset: How many days ago (5) Timing duration: Days (5) Timing details: Gradual onset, Still present Associated symptoms: Nasal congestion, Sore throat, Dry cough Improves by: Rest Worsened by: Activity Similar symptoms before: Diagnosis (sore throat) Recently seen: Not recently seen - Additional information Additional information: Lakesha Whaley is a 33-year-old female who presents with a 5-day history of sore throat minimal cough tickle in her throat and pain in her neck. She has had the symptoms previously over the past 2 years and she has been checked for thyroid disorder a number of times. These have always been normal. She feels fatigued. She has not had fever. Review of Systems Constitutional: reports: Myalgias, Fatigue. denies: Fever, Chills Eyes: denies: Decreased vision Ears: denies: Ear pain Nose: reports: Rhinorrhea / runny nose, Congestion Throat: reports: Sore throat Cardiac: denies: Chest pain / pressure, Palpitations Respiratory: reports: Cough. denies: Dyspnea GI: denies: Nausea, Vomiting : reports: Other (green brown color to urine). denies: Dysuria, Frequency Skin: denies: Rash Musculoskeletal: reports: Back pain. 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: Ovarian cysts : Chronic bladder infection HEENT: Other Psych: Anxiety Musculoskeletal: None Derm: None - Past Surgical History Past Surgical History: Yes /PER DIEM CLERK: Tubal ligation, Other HEENT: Tonsil/Adenoidectomy - Present Medications Home Medications: Ambulatory Orders Medication Instructions Recorded Confirmed Albuterol Sulfate [Proair Hfa 1 puffs INH QID PRN 12/31/19 10/09/23 Inhaler] Acetaminophen [Tylenol] 650 mg PO Q6H PRN #90 tablet 09/30/20 10/09/23 Ibuprofen [Motrin] 600 mg PO Q6H PRN #90 tab 09/30/20 10/09/23 Cefdinir 300 mg PO BID #20 cap 10/09/23 Clindamycin [Cleocin] 150 mg ORAL Q6HR 10/09/23 10/09/23 Oxycodone HCl/Acetaminophen 1 - 2 each PO Q6H PRN #14 tablet 10/09/23 [Percocet 5-325 mg Tablet] metroNIDAZOLE [Flagyl] 500 mg PO TID 10 Days #30 tablet 10/09/23 - Allergies Allergies/Adverse Reactions: Allergies Allergy/AdvReac Type Severity Reaction Status Date / Time amoxicillin [Amoxicillin] Allergy Mild Rash Verified 07/16/24 17:33 - Social History Does the pt smoke?: No Smoking Status: Never smoker Does the pt drink ETOH?: No Does the pt have substance abuse?: No - Immunizations Immunizations are current?: Yes Immunizations: TDAP current <10years - POLST Patient has POLST: No PD ED PE NORMAL - Vitals Vital signs reviewed: Yes (hypertensive ) - General General: Alert and 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, No acute distress, Well developed/nourished - HEENT HEENT: Atraumatic, PERRL, EOMI, Ears normal, Moist mucous membranes, Pharynx benign - Neck Neck: Supple, no meningeal sign, No bony TTP, Other (The lower segment of the neck is thick and rubbery. The thyroid feels enlarged but without nodules ) - Cardiac Cardiac: RRR, No murmur - Respiratory Respiratory: No respiratory distress, Clear bilaterally - Abdomen Abdomen: Soft, Non tender - Back Back: No CVA TTP, No spinal TTP - Derm Derm: Normal color, Warm and dry, No rash - Extremities Extremities: No deformity, No edema - Neuro Neuro: Alert and 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, ophthalmologist retina specialist 2-12 intact, No motor deficit, No sensory deficit, Normal speech Eye Opening: Spontaneous Motor: Obeys Commands Verbal: Oriented GCS Score: 15 - Psych Psych: Normal mood, Normal affect Results - Vitals Vitals: Vital Signs - 24 hr 07/16/24 17:29 Temperature 36.7 C Heart Rate 97 Respiratory 20 Rate Blood Pressure 156/101 H O2 Saturation 96 Oxygen O2 Source Room air - Labs Labs: Laboratory Tests 07/16/24 17:45 Urine Color YELLOW Urine Clarity HAZY Urine pH 7.0 Ur Specific Roby 1.020 Urine Protein NEGATIVE Urine Glucose (UA) NEGATIVE Urine Ketones NEGATIVE Urine Occult Blood NEGATIVE Urine Nitrite NEGATIVE Urine Bilirubin NEGATIVE Urine Urobilinogen 0.2 (NORMAL) Ur Leukocyte Esterase NEGATIVE Urine RBC 0-5 Urine WBC 0-3 Ur Squamous Epith Cells MOD Squamous H Urine Bacteria Rare Ur Microscopic Review INDICATED Urine Culture Comments NOT INDICATED Urine HCG, Qual NEGATIVE PD Medical Decision Making - ED course Complexity details: reviewed old records, reviewed results, re-evaluated patient, considered differential, d/w patient ED course: 33-year-old female with a sore throat congestion and fatigue with myalgias likely has viral URI. She has a thick lower segment to her neck and some minimal tenderness to the thyroid and a TSH is obtained as well as PCR and rapid strep. Diagnostic tests are pending at shift change and care is turned over to Dr. Nicole anticipating actions related to results. Departure - Departure Forms: PCP List
[2024-07-16 19:42] LABS: RAPID STREP SCREEN Negative (Negative)
[2024-07-16 20:20] LABS: CORONAVIRUS 229E-RESP PCR NOT DETECTED; CORONAVIRUS HKU1-RESP PCR NOT DETECTED; CORONAVIRUS NL63-RESP PCR NOT DETECTED; CORONAVIRUS OC43-RESP PCR NOT DETECTED; HUMAN METAPNEUMOVIRUS NOT DETECTED; INFLUENZA A- RESP PCR PANEL NOT DETECTED; INFLUENZA B - RESP PCR PANEL NOT DETECTED; PARAINFLUENZA VIRUS 1 NOT DETECTED; PARAINFLUENZA VIRUS 2 NOT DETECTED; PARAINFLUENZA VIRUS 3 NOT DETECTED; PARAINFLUENZA VIRUS 4 NOT DETECTED; RHINOVIRUS/ENTEROVIRUS NOT DETECTED; RSV- RESP PCR PANEL NOT DETECTED; SARS-CoV-2 -RESP PCR PANEL NOT DETECTED
[2024-07-16 20:21] LABS: B. PARAPERTUSSIS- RESP PCR PAN NOT DETECTED; B. PERTUSSIS- RESP PCR PANEL NOT DETECTED; C. PNEUMONIAE- RESP PCR PANEL NOT DETECTED; M. PNEUMONIAE- RESP PCR PANEL NOT DETECTED
--- NOTE | 2024-07-16 21:13 | ED Physician Documentation ---
ED Addendum - Addendum Addendum: 07/16/24 21:11 The patient's test results came back after change of shift. Rapid strep test is negative. Culture is pending. Viral panel test is negative. Urinalysis did not show signs of infection. TSH is normal. I did review these with the patient. Brief exam showed a little redness in the left tonsillar area and some mild adenopathy but not exudative nor peritonsillar swelling. Her general symptoms sound mainly viral. She had been ill for 5 or 6 days. Consideration would be a flu or COVID type illness that is now testing negative or just a different virus. Her main symptoms are the soreness of the throat and general malaise and aches. The throat pain was inhibiting her function and attention and she is concerned about sleep. I do feel perhaps some anti-inflammatories over the short-term several days and adding some pain medicine can be appropriate. Disposition: The patient discharged home in stable condition. Diagnoses: 1. Flulike illness 2. Odynophagia 3. Dysuria 4. Fatigue
[2024-07-16] MEDS: HYDROcod/ACET 5/325 Prepack 4 PO STA (21:16)
[2024-07-16] MEDS: dexAMETHasone 4 MG TABLET PO STA (21:16)
== END 2024-07-16 21:21 | disposition home or self-care (01) ==
LOC: ED 17:26
DX: R13.10 Dysphagia, unspecified (principal); R30.0 Dysuria; R53.83 Other fatigue; M79.10 Myalgia, unspecified site; R53.81 Other malaise
CPT/HCPCS: 36415; 81001; 81025; 84443; 87070; 87430; 87633; 99283; J8540; 81003; 87086